=== PATIENT | female | born 1950 | race African-American/Black ===

== ENCOUNTER 2018-04-23 07:57 | Inpatient (IN) ==
[2018-04-23 08:55] LABS: Basophils # 0.1 10*3/uL (0.0-0.2); Basophils % 0.5 % (0.0-0.8); Eosinophils # 0.2 10*3/uL (0.0-0.87); Eosinophils % 1.6 % (0.00-10.9); Hematocrit 41.3 VOL% (35.7-47.0); Hemoglobin 12.9 GM/DL (12.0-16.0); Immature Granulocytes % 0.4 %; Immature Granulocytes Absolute 0.04 #; Lymphocytes # 2.6 10*3/uL (1.4-4.0); Lymphocytes % 25.1 % (21.3-54.2); Mean Corpuscular HGB Conc 31.2 GM/DL (32-36); Mean Corpuscular Hemoglobin 29 PG (27-34); Mean Corpuscular Volume 92.6 FL (87-102); Mean Platelet Volume 9.6 FL (9.6-12.0); Monocytes # 0.7 10*3/uL (0.11-0.8); Monocytes % 6.8 % (1.7-12.7); Neutrophils # 6.8 10*3/uL (1.4-7.4); Neutrophils % 65.6 % (38.7-73.9); Platelet Count 292 T/CUMM (130-400); Red Blood Count 4.46 MC/CUMM (3.8-5.5); Red Cell Distribution Width 12.2 % (9.3-17.3); White Blood Count 10.4 T/CUMM (4-12)
[2018-04-23 09:05] LABS: INR 0.9; Partial Thromboplastin Time 24.9 SECS (0-40)
[2018-04-23 09:27] LABS: Alanine Aminotransferase 41 U/L (13-56); Albumin 3.4 G/DL (3.4-5.0); Alkaline Phosphatase 95 U/L (45-117); Aspartate Amino Transferase 21 U/L (0-37); Blood Urea Nitrogen 21 MG/DL (7-18); Calcium 9.4 MG/DL (8.5-10.1); Glucose 93 MG/DL (74-106); Osmolality,Calculated 288.8 MOS/KG (273-304); Potassium 3.9 MMOL/L (3.5-5.1); Sodium 144 MMOL/L (136-145); Troponin I Only < 0.015 NG/ML (0.00-0.045)
[2018-04-23] MEDS ORDERED: ACETAMINOPHEN 325 MG TABLET PO PRN (14:16)
[2018-04-23] MEDS ORDERED: ONDANSETRON 4 MG/2 ML VIAL IV PRN (14:16)
[2018-04-23] MEDS: SODIUM CHLORIDE 0.9% 1,000 ML IV SCH (18:28)
[2018-04-23] MEDS: methylPREDNISolone SOD SUC 40 MG/1 ML VIAL IV SCH (18:28)
[2018-04-23] MEDS: ASPIRIN EC 325 MG TABLET PO SCH (20:53)
[2018-04-23] MEDS: DOCUSATE SODIUM 100 MG CAPSULE PO SCH (20:53)
[2018-04-24] MEDS: methylPREDNISolone SOD SUC 40 MG/1 ML VIAL IV SCH ×4 (00:03→23:56)
[2018-04-24] MEDS: SODIUM CHLORIDE 0.9% 1,000 ML IV SCH ×3 (02:30→23:58)
[2018-04-24 08:06] LABS: Calcium 8.9 MG/DL (8.5-10.1); Osmolality,Calculated 290.8 MOS/KG (273-304); Potassium 3.6 MMOL/L (3.5-5.1)
[2018-04-24 08:16] LABS: Risk Ratio 3.13; VLDL CHOLESTEROL 13.2 MG/DL
[2018-04-24] MEDS ORDERED: ASPIRIN EC 325 MG TABLET PO SCH (09:00)
[2018-04-24] MEDS: ASPIRIN EC 325 MG TABLET PO SCH (09:42)
[2018-04-24] MEDS: DOCUSATE SODIUM 100 MG CAPSULE PO SCH ×2 (09:42→21:54)
[2018-04-24] MEDS: FUROSEMIDE 20 MG TABLET PO SCH (09:42)
[2018-04-24] MEDS: MAGNESIUM OXIDE 400 MG TABLET PO SCH (09:42)
[2018-04-24] MEDS: ATENOLOL 50 MG TABLET PO SCH (09:42)
[2018-04-24] MEDS: PANTOPRAZOLE 40 MG TABLET PO SCH (09:42)
[2018-04-24] MEDS: TRIAMTERENE/HCTZ 37.5-25 MG TABLET PO SCH (09:42)
[2018-04-24] MEDS: POTASSIUM CHLORIDE 20 MEQ TABLET PO SCH ×2 (09:42→21:55)
[2018-04-24] MEDS: FLUTICASONE 50 MCG NASAL SPRAY 16 GM BOTTLE BOTH NARES SCH (09:43)
[2018-04-25] MEDS: methylPREDNISolone SOD SUC 40 MG/1 ML VIAL IV SCH ×2 (06:48→16:00)
[2018-04-25] MEDS: TRIAMTERENE/HCTZ 37.5-25 MG TABLET PO SCH (09:29)
[2018-04-25] MEDS: PANTOPRAZOLE 40 MG TABLET PO SCH (09:30)
[2018-04-25] MEDS: MAGNESIUM OXIDE 400 MG TABLET PO SCH (09:30)
[2018-04-25] MEDS: ATENOLOL 50 MG TABLET PO SCH (09:30)
[2018-04-25] MEDS: DOCUSATE SODIUM 100 MG CAPSULE PO SCH (09:30)
[2018-04-25] MEDS: POTASSIUM CHLORIDE 20 MEQ TABLET PO SCH (09:30)
[2018-04-25] MEDS: SODIUM CHLORIDE 0.9% 1,000 ML IV SCH (09:31)
[2018-04-25] MEDS: FUROSEMIDE 20 MG TABLET PO SCH (09:31)
[2018-04-25] MEDS: FLUTICASONE 50 MCG NASAL SPRAY 16 GM BOTTLE BOTH NARES SCH (09:31)
[2018-04-25] MEDS: ASPIRIN EC 325 MG TABLET PO SCH (09:31)
[2018-04-25] MEDS ORDERED: hydrALAZINE 20 MG/1 ML VIAL IV PRN (15:38)
[2018-04-25 15:43] VITALS: BP 178/74
== END 2018-04-25 20:00 | disposition home health service (06) | DRG 66 ==
LOC: N.ED 07:57 → N.EDINP 10:14 → N.4E 14:51
PROVIDERS: ADMIT Internal Medicine; ATTEND Internal Medicine

== ENCOUNTER 2018-08-24 15:23 | Inpatient (IN) ==
[2018-08-24] MEDS ORDERED: ASPIRIN 325 MG TABLET PO STA (16:18)
[2018-08-24 16:30] LABS: Basophils % 0.3 % (0.0-0.8); Eosinophils # 0.2 10*3/uL (0.0-0.87); Eosinophils % 1.2 % (0.00-10.9); Hematocrit 40.7 VOL% (35.7-47.0); Hemoglobin 12.8 GM/DL (12.0-16.0); Immature Granulocytes % 0.7 %; Lymphocytes # 3.1 10*3/uL (1.4-4.0); Mean Corpuscular HGB Conc 31.4 GM/DL (32-36); Mean Corpuscular Hemoglobin 30 PG (27-34); Mean Corpuscular Volume 94.2 FL (87-102); Mean Platelet Volume 9.6 FL (9.6-12.0); Monocytes # 1.1 10*3/uL (0.11-0.8); Monocytes % 7.2 % (1.7-12.7); Neutrophils # 10.8 10*3/uL (1.4-7.4); Neutrophils % 70.6 % (38.7-73.9); Platelet Count 355 T/CUMM (130-400); Red Blood Count 4.32 MC/CUMM (3.8-5.5); White Blood Count 15.2 T/CUMM (4-12)
[2018-08-24 16:46] LABS: Calcium 9.1 MG/DL (8.5-10.1); Osmolality,Calculated 288.1 MOS/KG (273-304); Potassium 3.8 MMOL/L (3.5-5.1)
[2018-08-24] MEDS ORDERED: ENOXAPARIN 80 MG/0.8 ML SYRINGE SUBCUT STA (18:13)
[2018-08-24] MEDS ORDERED: NITROGLYCERIN 2% OINT 1 INCH/GM PACK TOP STA (18:13)
[2018-08-24] MEDS ORDERED: MORPHINE 4 MG/1 ML VIAL IV STA (18:15)
[2018-08-24] MEDS ORDERED: ONDANSETRON 4 MG/2 ML VIAL IV STA (18:15)
[2018-08-24] MEDS ORDERED: MAGNESIUM SULF RIDER 2 GM in PREMIX 1 EACH IV PRN (18:16)
[2018-08-24] MEDS ORDERED: ACETAMINOPHEN 325 MG TABLET PO PRN (18:16)
[2018-08-24] MEDS ORDERED: ONDANSETRON 4 MG/2 ML VIAL IV PRN (18:16)
[2018-08-24] MEDS ORDERED: MAGNESIUM SULF RIDER 4 GM in PREMIX 1 EACH IV PRN (18:16)
[2018-08-24] MEDS ORDERED: ZALEPLON 5 MG CAPSULE PO PRN (18:16)
[2018-08-24] MEDS ORDERED: NITROGLYCERIN SL 0.4 MG TABLET SL PRN (18:21)
[2018-08-24] MEDS: DOCUSATE SODIUM 100 MG CAPSULE PO SCH (20:24)
[2018-08-24] MEDS: ATORVASTATIN 20 MG TABLET PO SCH (20:24)
[2018-08-24] MEDS: TOPIRAMATE 25 MG TABLET PO SCH (20:24)
[2018-08-24] MEDS: MECLIZINE 25 MG TABLET PO SCH (20:24)
[2018-08-24] MEDS: CLOPIDOGREL 75 MG TABLET PO SCH (20:24)
[2018-08-24] MEDS: ATENOLOL 50 MG TABLET PO SCH (20:24)
[2018-08-24] MEDS: POTASSIUM CHLORIDE 10 MEQ TABLET PO SCH (20:24)
[2018-08-24] MEDS: SODIUM CHLORIDE 0.45% 1,000 ML IV SCH (20:27)
[2018-08-25] MEDS: MORPHINE 4 MG/1 ML VIAL IV PRN ×3 (00:18→22:40)
[2018-08-25 06:12] LABS: Basophils # 0.1 10*3/uL (0.0-0.2); Basophils % 0.4 % (0.0-0.8); Eosinophils # 0.3 10*3/uL (0.0-0.87); Eosinophils % 2.7 % (0.00-10.9); Hematocrit 37.2 VOL% (35.7-47.0); Hemoglobin 11.1 GM/DL (12.0-16.0); Immature Granulocytes % 0.7 %; Immature Granulocytes Absolute 0.08 #; Lymphocytes # 3.4 10*3/uL (1.4-4.0); Lymphocytes % 28.3 % (21.3-54.2); Mean Corpuscular HGB Conc 29.8 GM/DL (32-36); Mean Corpuscular Hemoglobin 29 PG (27-34); Mean Corpuscular Volume 96.1 FL (87-102); Mean Platelet Volume 10.9 FL (9.6-12.0); Monocytes # 1.1 10*3/uL (0.11-0.8); Monocytes % 8.8 % (1.7-12.7); Neutrophils # 7.1 10*3/uL (1.4-7.4); Neutrophils % 59.1 % (38.7-73.9); Platelet Count 241 T/CUMM (130-400); Red Blood Count 3.87 MC/CUMM (3.8-5.5); Red Cell Distribution Width 12.3 % (9.3-17.3)
[2018-08-25] MEDS ORDERED: ENOXAPARIN 80 MG/0.8 ML SYRINGE SUBCUT SCH (06:30)
[2018-08-25 06:31] LABS: Calcium 8.2 MG/DL (8.5-10.1); Osmolality,Calculated 279.5 MOS/KG (273-304); Potassium 3.7 MMOL/L (3.5-5.1); Risk Ratio 3.7; VLDL CHOLESTEROL 22.4 MG/DL
[2018-08-25] MEDS ORDERED: LIDOCAINE 1% 20 ML VIAL ONE (08:20)
[2018-08-25] MEDS ORDERED: MIDAZOLAM 2 MG/2 ML VIAL ONE (08:21)
[2018-08-25] MEDS ORDERED: HEPARIN/NACL 0.9% 2 UNITS/ML 1,000 ML IV ONE (08:21)
[2018-08-25] MEDS ORDERED: HYDROmorphone 2 MG/1 ML VIAL ONE (08:21)
[2018-08-25] MEDS: ATENOLOL 50 MG TABLET PO SCH ×2 (08:23→21:09)
[2018-08-25] MEDS: CLOPIDOGREL 75 MG TABLET PO SCH (08:23)
[2018-08-25] MEDS ORDERED: BIVALIRUDIN 250 MG VIAL IV ONE (08:58)
[2018-08-25] MEDS ORDERED: ASPIRIN 325 MG TABLET PO SCH (09:00)
[2018-08-25] MEDS ORDERED: TICAGRELOR 90 MG TABLET ONE (09:28)
[2018-08-25] MEDS: PANTOPRAZOLE 40 MG TABLET PO SCH (10:34)
[2018-08-25] MEDS: DOCUSATE SODIUM 100 MG CAPSULE PO SCH ×2 (10:35→21:10)
[2018-08-25] MEDS: POTASSIUM CHLORIDE 10 MEQ TABLET PO SCH ×3 (10:35→21:09)
[2018-08-25] MEDS: TOPIRAMATE 25 MG TABLET PO SCH ×2 (10:35→21:11)
[2018-08-25] MEDS: SODIUM CHLORIDE 0.45% 1,000 ML IV SCH (10:45)
[2018-08-25 11:25] LABS: CKMB % 4.7 %
[2018-08-25 11:34] LABS: Troponin I 11.4 NG/ML (0.00-0.045)
[2018-08-25 18:31] LABS: CKMB % 3.8 %
[2018-08-25 18:33] LABS: Troponin I 4.51 NG/ML (0.00-0.045)
[2018-08-25] MEDS ORDERED: ALUMINUM/MAGNES/SIMETH MAX STR 30 ML UDCUP PO PRN (20:55)
[2018-08-25] MEDS: MECLIZINE 25 MG TABLET PO SCH (21:09)
[2018-08-25] MEDS: ATORVASTATIN 20 MG TABLET PO SCH (21:10)
[2018-08-25] MEDS: TICAGRELOR 90 MG TABLET PO SCH (21:11)
[2018-08-26 03:07] LABS: Osmolality,Calculated 282.1 MOS/KG (273-304); Potassium 4.3 MMOL/L (3.5-5.1)
[2018-08-26 03:11] LABS: CKMB % 2.8 %
[2018-08-26 03:12] LABS: Troponin I 5.21 NG/ML (0.00-0.045)
[2018-08-26] MEDS: TICAGRELOR 90 MG TABLET PO SCH ×2 (08:42→20:41)
[2018-08-26] MEDS: POTASSIUM CHLORIDE 10 MEQ TABLET PO SCH ×3 (08:43→20:41)
[2018-08-26] MEDS: TOPIRAMATE 25 MG TABLET PO SCH ×2 (08:44→20:41)
[2018-08-26] MEDS: PANTOPRAZOLE 40 MG TABLET PO SCH (08:44)
[2018-08-26] MEDS: ASPIRIN EC 81 MG TABLET PO SCH (08:44)
[2018-08-26] MEDS: DOCUSATE SODIUM 100 MG CAPSULE PO SCH ×2 (08:45→20:41)
[2018-08-26] MEDS: ATENOLOL 50 MG TABLET PO SCH ×2 (08:45→20:41)
[2018-08-26] MEDS: ATORVASTATIN 20 MG TABLET PO SCH (20:41)
[2018-08-26] MEDS: MECLIZINE 25 MG TABLET PO SCH (20:42)
[2018-08-26] MEDS: MORPHINE 4 MG/1 ML VIAL IV PRN (21:33)
[2018-08-27] MEDS: MORPHINE 4 MG/1 ML VIAL IV PRN ×2 (05:01→13:17)
[2018-08-27] MEDS: TOPIRAMATE 25 MG TABLET PO SCH ×2 (08:30→22:14)
[2018-08-27] MEDS: DOCUSATE SODIUM 100 MG CAPSULE PO SCH ×2 (08:30→22:15)
[2018-08-27] MEDS: POTASSIUM CHLORIDE 10 MEQ TABLET PO SCH ×3 (08:30→22:13)
[2018-08-27] MEDS: ASPIRIN EC 81 MG TABLET PO SCH (08:30)
[2018-08-27] MEDS: ATENOLOL 50 MG TABLET PO SCH ×2 (08:30→22:14)
[2018-08-27] MEDS: PANTOPRAZOLE 40 MG TABLET PO SCH (08:30)
[2018-08-27] MEDS: TICAGRELOR 90 MG TABLET PO SCH ×2 (08:30→22:18)
[2018-08-27] MEDS ORDERED: MECLIZINE 25 MG TABLET PO PRN (10:23)
[2018-08-27] MEDS: traMADol 50 MG TABLET PO PRN ×2 (11:04→22:11)
[2018-08-27] MEDS ORDERED: POTASSIUM CHLORIDE 40 MEQ PO SCH (15:00)
[2018-08-27] MEDS: LIDOCAINE 5% PATCH TRANSDERM SCH (17:35)
[2018-08-27] MEDS ORDERED: ATORVASTATIN 20 MG TABLET PO SCH (21:00)
[2018-08-27] MEDS ORDERED: ATENOLOL 50 MG TABLET PO SCH (21:00)
[2018-08-27] MEDS ORDERED: DOCUSATE SODIUM 100 MG CAPSULE PO SCH (21:00)
[2018-08-27] MEDS ORDERED: TOPIRAMATE 25 MG TABLET PO SCH (21:00)
[2018-08-27] MEDS: MECLIZINE 25 MG TABLET PO SCH (22:12)
[2018-08-27] MEDS: ATORVASTATIN 20 MG TABLET PO SCH (22:13)
[2018-08-28 04:59] LABS: Basophils % 0.3 % (0.0-0.8); Eosinophils # 0.4 10*3/uL (0.0-0.87); Hematocrit 31.9 VOL% (35.7-47.0); Hemoglobin 9.4 GM/DL (12.0-16.0); Immature Granulocytes % 0.6 %; Immature Granulocytes Absolute 0.08 #; Lymphocytes # 2.7 10*3/uL (1.4-4.0); Lymphocytes % 21.6 % (21.3-54.2); Mean Corpuscular HGB Conc 29.5 GM/DL (32-36); Mean Corpuscular Hemoglobin 29 PG (27-34); Mean Corpuscular Volume 96.7 FL (87-102); Mean Platelet Volume 10.2 FL (9.6-12.0); Monocytes % 8.2 % (1.7-12.7); Neutrophils # 8.3 10*3/uL (1.4-7.4); Neutrophils % 66.3 % (38.7-73.9); Platelet Count 279 T/CUMM (130-400); Red Cell Distribution Width 12.4 % (9.3-17.3); White Blood Count 12.5 T/CUMM (4-12)
[2018-08-28 05:29] LABS: Calcium 7.8 MG/DL (8.5-10.1); Osmolality,Calculated 283.1 MOS/KG (273-304); Potassium 4.3 MMOL/L (3.5-5.1)
[2018-08-28] MEDS ORDERED: NON-FORMULARY MEDICATION (Omeprazole [Prilosec] 20 MG) PO SCH (09:00)
[2018-08-28] MEDS: MAGNESIUM OXIDE 400 MG TABLET PO SCH (09:31)
[2018-08-28] MEDS: TICAGRELOR 90 MG TABLET PO SCH ×2 (09:31→22:24)
[2018-08-28] MEDS: ASPIRIN EC 81 MG TABLET PO SCH (09:31)
[2018-08-28] MEDS: ATENOLOL 50 MG TABLET PO SCH ×2 (09:31→22:26)
[2018-08-28] MEDS: POTASSIUM CHLORIDE 10 MEQ TABLET PO SCH ×3 (09:31→22:28)
[2018-08-28] MEDS: TOPIRAMATE 25 MG TABLET PO SCH ×2 (09:32→22:25)
[2018-08-28] MEDS: PANTOPRAZOLE 40 MG TABLET PO SCH (09:32)
[2018-08-28] MEDS: LIDOCAINE 5% PATCH TRANSDERM SCH (09:33)
[2018-08-28] MEDS: DOCUSATE SODIUM 100 MG CAPSULE PO SCH ×2 (09:34→22:26)
[2018-08-28] MEDS: FLUTICASONE 50 MCG NASAL SPRAY 16 GM BOTTLE BOTH NARES SCH (09:34)
[2018-08-28] MEDS ORDERED: ROPIVACAINE 0.5% 30 ML VIAL NERVEBLOCK ONE (14:30)
[2018-08-28] MEDS ORDERED: TRIAMCINOLONE ACETONIDE 40 MG/1 ML VIAL MISC INJ ONE (14:30)
[2018-08-28] MEDS: MECLIZINE 25 MG TABLET PO SCH (22:25)
[2018-08-28] MEDS: traMADol 50 MG TABLET PO PRN (22:25)
[2018-08-28] MEDS: ATORVASTATIN 20 MG TABLET PO SCH (22:25)
[2018-08-29 07:34] LABS: Basophils # 0.1 10*3/uL (0.0-0.2); Basophils % 0.3 % (0.0-0.8); Eosinophils # 0.3 10*3/uL (0.0-0.87); Hematocrit 32.2 VOL% (35.7-47.0); Immature Granulocytes % 0.9 %; Immature Granulocytes Absolute 0.13 #; Lymphocytes # 2.3 10*3/uL (1.4-4.0); Lymphocytes % 15.7 % (21.3-54.2); Mean Corpuscular HGB Conc 31.1 GM/DL (32-36); Mean Corpuscular Hemoglobin 30 PG (27-34); Mean Corpuscular Volume 96.4 FL (87-102); Mean Platelet Volume 9.8 FL (9.6-12.0); Monocytes % 6.7 % (1.7-12.7); Neutrophils # 10.6 10*3/uL (1.4-7.4); Neutrophils % 74.4 % (38.7-73.9); Platelet Count 302 T/CUMM (130-400); Red Blood Count 3.34 MC/CUMM (3.8-5.5); Red Cell Distribution Width 12.4 % (9.3-17.3); White Blood Count 14.3 T/CUMM (4-12)
[2018-08-29 07:55] LABS: Calcium 8.6 MG/DL (8.5-10.1); Potassium 4.1 MMOL/L (3.5-5.1)
[2018-08-29 07:57] LABS: Troponin I 0.739 NG/ML (0.00-0.045)
[2018-08-29] MEDS: TICAGRELOR 90 MG TABLET PO SCH ×2 (08:31→21:22)
[2018-08-29] MEDS: MAGNESIUM OXIDE 400 MG TABLET PO SCH (08:31)
[2018-08-29] MEDS: PANTOPRAZOLE 40 MG TABLET PO SCH (08:32)
[2018-08-29] MEDS: POTASSIUM CHLORIDE 10 MEQ TABLET PO SCH ×3 (08:32→21:21)
[2018-08-29] MEDS: TOPIRAMATE 25 MG TABLET PO SCH ×2 (08:32→21:22)
[2018-08-29] MEDS: ATENOLOL 50 MG TABLET PO SCH ×2 (08:32→21:24)
[2018-08-29] MEDS: ASPIRIN EC 81 MG TABLET PO SCH (08:32)
[2018-08-29] MEDS: DOCUSATE SODIUM 100 MG CAPSULE PO SCH ×2 (08:32→21:22)
[2018-08-29] MEDS: LIDOCAINE 5% PATCH TRANSDERM SCH (08:33)
[2018-08-29] MEDS: FLUTICASONE 50 MCG NASAL SPRAY 16 GM BOTTLE BOTH NARES SCH (08:39)
[2018-08-29] MEDS: ATORVASTATIN 20 MG TABLET PO SCH (21:22)
[2018-08-29] MEDS: MECLIZINE 25 MG TABLET PO SCH (21:22)
[2018-08-30 06:01] LABS: Calcium 8.7 MG/DL (8.5-10.1); Osmolality,Calculated 283.1 MOS/KG (273-304); Potassium 4.1 MMOL/L (3.5-5.1)
[2018-08-30 06:35] LABS: Basophils # 0.1 10*3/uL (0.0-0.2); Basophils % 0.4 % (0.0-0.8); Eosinophils # 0.3 10*3/uL (0.0-0.87); Eosinophils % 1.9 % (0.00-10.9); Hematocrit 34.2 VOL% (35.7-47.0); Hemoglobin 10.7 GM/DL (12.0-16.0); Immature Granulocytes % 1.2 %; Immature Granulocytes Absolute 0.17 #; Lymphocytes # 2.3 10*3/uL (1.4-4.0); Lymphocytes % 15.6 % (21.3-54.2); Mean Corpuscular HGB Conc 31.3 GM/DL (32-36); Mean Corpuscular Hemoglobin 30 PG (27-34); Mean Platelet Volume 10.7 FL (9.6-12.0); Monocytes % 6.8 % (1.7-12.7); Neutrophils # 10.7 10*3/uL (1.4-7.4); Neutrophils % 74.1 % (38.7-73.9); Platelet Count 288 T/CUMM (130-400); Red Cell Distribution Width 12.5 % (9.3-17.3); White Blood Count 14.5 T/CUMM (4-12)
[2018-08-30] MEDS: MAGNESIUM OXIDE 400 MG TABLET PO SCH (08:32)
[2018-08-30] MEDS: POTASSIUM CHLORIDE 10 MEQ TABLET PO SCH ×3 (08:33→20:51)
[2018-08-30] MEDS: PANTOPRAZOLE 40 MG TABLET PO SCH (08:33)
[2018-08-30] MEDS: ATENOLOL 50 MG TABLET PO SCH ×2 (08:33→20:52)
[2018-08-30] MEDS: TICAGRELOR 90 MG TABLET PO SCH ×2 (08:33→20:51)
[2018-08-30] MEDS: SERTRALINE 25 MG TABLET PO SCH (08:34)
[2018-08-30] MEDS: DOCUSATE SODIUM 100 MG CAPSULE PO SCH ×2 (08:34→20:52)
[2018-08-30] MEDS: ASPIRIN EC 81 MG TABLET PO SCH (08:34)
[2018-08-30] MEDS: TOPIRAMATE 25 MG TABLET PO SCH ×2 (08:35→20:52)
[2018-08-30] MEDS: LIDOCAINE 5% PATCH TRANSDERM SCH (08:38)
[2018-08-30] MEDS: FLUTICASONE 50 MCG NASAL SPRAY 16 GM BOTTLE BOTH NARES SCH (08:40)
[2018-08-30] MEDS: traMADol 50 MG TABLET PO PRN ×2 (12:18→20:52)
[2018-08-30] MEDS: ATORVASTATIN 20 MG TABLET PO SCH (20:51)
[2018-08-30] MEDS: MECLIZINE 25 MG TABLET PO SCH (20:51)
[2018-08-31] MEDS: MAGNESIUM OXIDE 400 MG TABLET PO SCH (10:43)
[2018-08-31] MEDS: SERTRALINE 25 MG TABLET PO SCH (10:43)
[2018-08-31] MEDS: ASPIRIN EC 81 MG TABLET PO SCH (10:43)
[2018-08-31] MEDS: DOCUSATE SODIUM 100 MG CAPSULE PO SCH ×2 (10:44→10:55)
[2018-08-31] MEDS: ATENOLOL 50 MG TABLET PO SCH (10:44)
[2018-08-31] MEDS: TICAGRELOR 90 MG TABLET PO SCH (10:44)
[2018-08-31] MEDS: POTASSIUM CHLORIDE 10 MEQ TABLET PO SCH (10:44)
[2018-08-31] MEDS: PANTOPRAZOLE 40 MG TABLET PO SCH (10:44)
[2018-08-31] MEDS: TOPIRAMATE 25 MG TABLET PO SCH (10:44)
[2018-08-31] MEDS: LIDOCAINE 5% PATCH TRANSDERM SCH ×2 (10:45→10:57)
[2018-08-31] MEDS: FLUTICASONE 50 MCG NASAL SPRAY 16 GM BOTTLE BOTH NARES SCH (10:45)
[2018-08-31 11:26] VITALS: BP 130/64
== END 2018-08-31 13:11 | disposition home health service (06) | DRG 247 ==
LOC: N.ED 15:23 → N.EDINP 18:16 → N.TELES 19:02
PROVIDERS: ADMIT Internal Medicine; ATTEND Internal Medicine
PROC: CLCCHCL (ICD-10-PCS; 2018-08-25 09:00)

== ENCOUNTER 2018-09-11 12:06 | Inpatient (IN) ==
[2018-09-11] MEDS ORDERED: ONDANSETRON 4 MG/2 ML VIAL IV STA (12:36)
[2018-09-11] MEDS ORDERED: HYDROmorphone 2 MG/1 ML VIAL IV STA ×2 (12:36→15:31)
[2018-09-11] MEDS ORDERED: methylPREDNISolone SOD SUC 125 MG/2 ML VIAL IV STA (12:37)
[2018-09-11 13:38] LABS: Basophils # 0.1 10*3/uL (0.0-0.2); Basophils % 0.4 % (0.0-0.8); Eosinophils # 0.2 10*3/uL (0.0-0.87); Eosinophils % 0.9 % (0.00-10.9); Hematocrit 38.8 VOL% (35.7-47.0); Hemoglobin 12.2 GM/DL (12.0-16.0); Immature Granulocytes % 0.6 %; Immature Granulocytes Absolute 0.11 #; Lymphocytes # 1.4 10*3/uL (1.4-4.0); Lymphocytes % 7.8 % (21.3-54.2); Mean Corpuscular HGB Conc 31.4 GM/DL (32-36); Mean Corpuscular Hemoglobin 30 PG (27-34); Mean Corpuscular Volume 94.9 FL (87-102); Mean Platelet Volume 10.6 FL (9.6-12.0); Monocytes # 1.5 10*3/uL (0.11-0.8); Monocytes % 8.3 % (1.7-12.7); Platelet Count 405 T/CUMM (130-400); Red Blood Count 4.09 MC/CUMM (3.8-5.5); Red Cell Distribution Width 12.7 % (9.3-17.3); White Blood Count 18.3 T/CUMM (4-12)
[2018-09-11 14:03] LABS: Calcium 9.3 MG/DL (8.5-10.1); Osmolality,Calculated 275.7 MOS/KG (273-304); Potassium 4.9 MMOL/L (3.5-5.1); Uric Acid 7.3 MG/DL (2.6-6.0)
[2018-09-11] MEDS ORDERED: ONDANSETRON 4 MG/2 ML VIAL IV PRN (16:46)
[2018-09-11] MEDS ORDERED: ACETAMINOPHEN 325 MG TABLET PO PRN (16:46)
[2018-09-11] MEDS: SODIUM CHLORIDE 0.9% 1,000 ML IV SCH (17:27)
[2018-09-11] MEDS: PIPERACILLIN/TAZOBACTAM 3,375 MG in SODIUM CHLORIDE 0.9% 100 ML IV SCH (19:29)
[2018-09-11] MEDS: LIDOCAINE 5% PATCH TRANSDERM SCH (20:29)
[2018-09-11] MEDS: KETOROLAC 15 MG/1 ML VIAL IV SCH (20:29)
[2018-09-11] MEDS: DOCUSATE SODIUM 100 MG CAPSULE PO SCH ×2 (20:29→22:58)
[2018-09-11] MEDS ORDERED: traMADol 50 MG TABLET PO PRN (21:45)
[2018-09-11] MEDS ORDERED: ALUMINUM/MAGNES/SIMETH MAX STR 30 ML UDCUP PO PRN (21:45)
[2018-09-11] MEDS ORDERED: NITROGLYCERIN SL 0.4 MG TABLET SL PRN (21:45)
[2018-09-11] MEDS: TICAGRELOR 90 MG TABLET PO SCH (22:58)
[2018-09-11] MEDS: ATENOLOL 50 MG TABLET PO SCH (22:58)
[2018-09-11] MEDS: TOPIRAMATE 25 MG TABLET PO SCH (22:58)
[2018-09-11] MEDS: MECLIZINE 25 MG TABLET PO SCH (22:58)
[2018-09-11] MEDS: methylPREDNISolone SOD SUC 40 MG/1 ML VIAL IV SCH (22:59)
[2018-09-12] MEDS: PIPERACILLIN/TAZOBACTAM 3,375 MG in SODIUM CHLORIDE 0.9% 100 ML IV SCH ×3 (03:19→18:31)
[2018-09-12] MEDS: SODIUM CHLORIDE 0.9% 1,000 ML IV SCH ×3 (03:23→18:13)
[2018-09-12] MEDS: KETOROLAC 15 MG/1 ML VIAL IV SCH ×3 (04:53→20:50)
[2018-09-12 05:20] LABS: Basophils % 0.1 % (0.0-0.8); Hematocrit 33.5 VOL% (35.7-47.0); Hemoglobin 10.4 GM/DL (12.0-16.0); Immature Granulocytes % 0.7 %; Immature Granulocytes Absolute 0.11 #; Lymphocytes # 0.8 10*3/uL (1.4-4.0); Lymphocytes % 5.2 % (21.3-54.2); Mean Corpuscular Hemoglobin 29 PG (27-34); Mean Corpuscular Volume 94.6 FL (87-102); Mean Platelet Volume 10.5 FL (9.6-12.0); Monocytes # 0.4 10*3/uL (0.11-0.8); Monocytes % 2.6 % (1.7-12.7); Neutrophils # 13.6 10*3/uL (1.4-7.4); Neutrophils % 91.4 % (38.7-73.9); Platelet Count 378 T/CUMM (130-400); Red Blood Count 3.54 MC/CUMM (3.8-5.5); Red Cell Distribution Width 12.5 % (9.3-17.3); White Blood Count 14.9 T/CUMM (4-12)
[2018-09-12 05:59] LABS: Osmolality,Calculated 284.3 MOS/KG (273-304); Potassium 4.3 MMOL/L (3.5-5.1)
[2018-09-12] MEDS: methylPREDNISolone SOD SUC 40 MG/1 ML VIAL IV SCH (06:08)
[2018-09-12 06:25] LABS: Band Neutrophils 1 % (0-10); Hypochromasia 1+; Lymphocytes 6 % (20-55); Platelet Estimate Adequate; Segmented Neutrophils 91 % (50-85); Total Cells Counted 100
[2018-09-12] MEDS: PANTOPRAZOLE 40 MG TABLET PO SCH (09:12)
[2018-09-12] MEDS: TICAGRELOR 90 MG TABLET PO SCH ×2 (09:12→20:49)
[2018-09-12] MEDS: ATENOLOL 50 MG TABLET PO SCH ×2 (09:12→20:49)
[2018-09-12] MEDS: FLUTICASONE 50 MCG NASAL SPRAY 16 GM BOTTLE BOTH NARES SCH (09:12)
[2018-09-12] MEDS: POTASSIUM CHLORIDE 20 MEQ TABLET PO SCH ×3 (09:12→20:49)
[2018-09-12] MEDS: MAGNESIUM OXIDE 400 MG TABLET PO SCH (09:12)
[2018-09-12] MEDS: TOPIRAMATE 25 MG TABLET PO SCH ×2 (09:12→20:49)
[2018-09-12] MEDS: ASPIRIN EC 81 MG TABLET PO SCH (09:12)
[2018-09-12] MEDS: DOCUSATE SODIUM 100 MG CAPSULE PO SCH ×3 (09:12→20:49)
[2018-09-12] MEDS: MECLIZINE 25 MG TABLET PO PRN (16:26)
[2018-09-12] MEDS: MECLIZINE 25 MG TABLET PO SCH (20:49)
[2018-09-12] MEDS: LIDOCAINE 5% PATCH TRANSDERM SCH (21:25)
[2018-09-12] MEDS ORDERED: MAGNESIUM SULF RIDER 1 GM in PREMIX 1 EACH IV ONE (22:37)
[2018-09-13] MEDS: SODIUM CHLORIDE 0.9% 1,000 ML IV SCH ×3 (02:35→17:06)
[2018-09-13] MEDS: PIPERACILLIN/TAZOBACTAM 3,375 MG in SODIUM CHLORIDE 0.9% 100 ML IV SCH ×3 (02:35→18:27)
[2018-09-13] MEDS: KETOROLAC 15 MG/1 ML VIAL IV SCH ×3 (05:19→20:39)
[2018-09-13] MEDS: DOCUSATE SODIUM 100 MG CAPSULE PO SCH ×2 (08:42→20:41)
[2018-09-13] MEDS: ASPIRIN EC 81 MG TABLET PO SCH (08:42)
[2018-09-13] MEDS: TOPIRAMATE 25 MG TABLET PO SCH ×2 (08:42→20:40)
[2018-09-13] MEDS: PANTOPRAZOLE 40 MG TABLET PO SCH (08:42)
[2018-09-13] MEDS: TICAGRELOR 90 MG TABLET PO SCH ×2 (08:42→20:40)
[2018-09-13] MEDS: POTASSIUM CHLORIDE 20 MEQ TABLET PO SCH ×3 (08:42→20:39)
[2018-09-13] MEDS: FLUTICASONE 50 MCG NASAL SPRAY 16 GM BOTTLE BOTH NARES SCH (08:42)
[2018-09-13] MEDS: MAGNESIUM OXIDE 400 MG TABLET PO SCH (08:42)
[2018-09-13] MEDS: ATENOLOL 50 MG TABLET PO SCH ×2 (08:43→20:40)
[2018-09-13] MEDS: LIDOCAINE 5% PATCH TRANSDERM SCH (20:40)
[2018-09-13] MEDS: MECLIZINE 25 MG TABLET PO SCH (20:40)
[2018-09-14] MEDS: SODIUM CHLORIDE 0.9% 1,000 ML IV SCH ×2 (01:22→09:20)
[2018-09-14] MEDS: PIPERACILLIN/TAZOBACTAM 3,375 MG in SODIUM CHLORIDE 0.9% 100 ML IV SCH ×3 (03:13→20:44)
[2018-09-14] MEDS: KETOROLAC 15 MG/1 ML VIAL IV SCH (05:31)
[2018-09-14 08:04] LABS: Basophils # 0.1 10*3/uL (0.0-0.2); Basophils % 0.5 % (0.0-0.8); Eosinophils # 0.5 10*3/uL (0.0-0.87); Eosinophils % 4.4 % (0.00-10.9); Hematocrit 32.3 VOL% (35.7-47.0); Hemoglobin 9.8 GM/DL (12.0-16.0); Immature Granulocytes % 0.9 %; Immature Granulocytes Absolute 0.09 #; Lymphocytes # 2.8 10*3/uL (1.4-4.0); Lymphocytes % 27.6 % (21.3-54.2); Mean Corpuscular HGB Conc 30.3 GM/DL (32-36); Mean Corpuscular Hemoglobin 29 PG (27-34); Mean Corpuscular Volume 95.3 FL (87-102); Monocytes # 0.8 10*3/uL (0.11-0.8); Neutrophils # 5.9 10*3/uL (1.4-7.4); Neutrophils % 58.6 % (38.7-73.9); Platelet Count 313 T/CUMM (130-400); Red Blood Count 3.39 MC/CUMM (3.8-5.5); Red Cell Distribution Width 13.2 % (9.3-17.3); White Blood Count 10.1 T/CUMM (4-12)
[2018-09-14 08:23] LABS: Platelet Estimate Normal
[2018-09-14 08:25] LABS: Anisocytosis 1+; Giant Platelets Few; Macrocytosis 1+
[2018-09-14 08:26] LABS: Calcium 8.5 MG/DL (8.5-10.1); Osmolality,Calculated 288.7 MOS/KG (273-304); Potassium 4.3 MMOL/L (3.5-5.1)
[2018-09-14] MEDS: POTASSIUM CHLORIDE 20 MEQ TABLET PO SCH ×3 (08:30→20:45)
[2018-09-14] MEDS: ASPIRIN EC 81 MG TABLET PO SCH (08:31)
[2018-09-14] MEDS: TICAGRELOR 90 MG TABLET PO SCH ×2 (08:31→20:45)
[2018-09-14] MEDS: TOPIRAMATE 25 MG TABLET PO SCH ×2 (08:31→20:45)
[2018-09-14] MEDS: DOCUSATE SODIUM 100 MG CAPSULE PO SCH (08:31)
[2018-09-14] MEDS: PANTOPRAZOLE 40 MG TABLET PO SCH (08:31)
[2018-09-14] MEDS: ATENOLOL 50 MG TABLET PO SCH ×2 (08:32→20:45)
[2018-09-14] MEDS: MAGNESIUM OXIDE 400 MG TABLET PO SCH (08:32)
[2018-09-14] MEDS: FLUTICASONE 50 MCG NASAL SPRAY 16 GM BOTTLE BOTH NARES SCH (10:13)
[2018-09-14] MEDS ORDERED: cloNIDine 0.1 MG TABLET PO ONE (12:30)
[2018-09-14] MEDS: methylPREDNISolone SOD SUC 40 MG/1 ML VIAL IV SCH (13:46)
[2018-09-14 15:27] LABS: Apearance,Urine CLEAR (Clear); Bilirubin,Urine Negative (Negative); Blood, Urine Negative (Negative); Glucose,Urine (UA) Negative (Negative); Ketones,Urine Negative (Negative); Nitrite,Urine Negative (Negative); Protein,Urine Negative; RBC,Urine <1 /HPF (0-4); Urine Color Straw (Yellow); Urine Specific Gravity 1.011 (1.001-1.035); Urine Urobilinogen < 2.0 EU/DL (0.2-1.0); WBC,Urine 1 /HPF (0-6)
[2018-09-14] MEDS: SODIUM CHLORIDE 23.4% CONC INJ 38.5 MEQ in STERILE WATER INJ 1,000 ML IV SCH (16:47)
[2018-09-14] MEDS: MECLIZINE 25 MG TABLET PO SCH (20:45)
[2018-09-14] MEDS: cloNIDine 0.1 MG TABLET PO SCH (20:45)
[2018-09-14] MEDS: LIDOCAINE 5% PATCH TRANSDERM SCH (20:48)
[2018-09-14] MEDS ORDERED: cloNIDine 0.1 MG TABLET PO SCH (21:00)
[2018-09-15] MEDS: methylPREDNISolone SOD SUC 40 MG/1 ML VIAL IV SCH ×2 (00:36→15:33)
[2018-09-15] MEDS: PIPERACILLIN/TAZOBACTAM 3,375 MG in SODIUM CHLORIDE 0.9% 100 ML IV SCH ×3 (03:53→21:00)
[2018-09-15 06:30] LABS: Albumin 2.6 G/DL (3.4-5.0); Bilirubin,Total 0.7 MG/DL (0.2-1.0); Calcium 8.5 MG/DL (8.5-10.1); Osmolality,Calculated 287.8 MOS/KG (273-304); Potassium 4.8 MMOL/L (3.5-5.1); Total Protein 6.3 G/DL (6.4-8.3)
[2018-09-15] MEDS: MAGNESIUM OXIDE 400 MG TABLET PO SCH (08:39)
[2018-09-15] MEDS: TOPIRAMATE 25 MG TABLET PO SCH ×2 (08:40→20:38)
[2018-09-15] MEDS: ASPIRIN EC 81 MG TABLET PO SCH (08:40)
[2018-09-15] MEDS: ATENOLOL 50 MG TABLET PO SCH ×2 (08:40→20:38)
[2018-09-15] MEDS: PANTOPRAZOLE 40 MG TABLET PO SCH (08:42)
[2018-09-15] MEDS: TICAGRELOR 90 MG TABLET PO SCH ×2 (08:43→20:38)
[2018-09-15] MEDS: POTASSIUM CHLORIDE 20 MEQ TABLET PO SCH ×3 (08:44→20:38)
[2018-09-15] MEDS: FLUTICASONE 50 MCG NASAL SPRAY 16 GM BOTTLE BOTH NARES SCH (08:45)
[2018-09-15] MEDS: cloNIDine 0.1 MG TABLET PO SCH ×2 (08:54→20:38)
[2018-09-15 13:27] LABS: Basophils % 0.2 % (0.0-0.8); Eosinophils # 0.2 10*3/uL (0.0-0.87); Hematocrit 33.4 VOL% (35.7-47.0); Hemoglobin 10.1 GM/DL (12.0-16.0); Immature Granulocytes % 1.3 %; Immature Granulocytes Absolute 0.19 #; Lymphocytes % 19.9 % (21.3-54.2); Mean Corpuscular HGB Conc 30.2 GM/DL (32-36); Mean Corpuscular Hemoglobin 29 PG (27-34); Mean Corpuscular Volume 95.7 FL (87-102); Monocytes % 6.6 % (1.7-12.7); Neutrophils # 10.7 10*3/uL (1.4-7.4); Platelet Count 340 T/CUMM (130-400); Red Blood Count 3.49 MC/CUMM (3.8-5.5); White Blood Count 15.1 T/CUMM (4-12)
[2018-09-15 17:49] LABS: Folate 8.8 NG/ML (5.4-24.0)
[2018-09-15] MEDS: SODIUM CHLORIDE 23.4% CONC INJ 38.5 MEQ in STERILE WATER INJ 1,000 ML IV SCH (19:00)
[2018-09-15] MEDS: MECLIZINE 25 MG TABLET PO SCH (20:38)
[2018-09-15] MEDS: LIDOCAINE 5% PATCH TRANSDERM SCH (20:39)
[2018-09-16] MEDS: methylPREDNISolone SOD SUC 40 MG/1 ML VIAL IV SCH ×2 (01:18→13:54)
[2018-09-16] MEDS: SODIUM CHLORIDE 23.4% CONC INJ 38.5 MEQ in STERILE WATER INJ 1,000 ML IV SCH ×3 (01:18→12:56)
[2018-09-16] MEDS: PIPERACILLIN/TAZOBACTAM 3,375 MG in SODIUM CHLORIDE 0.9% 100 ML IV SCH ×3 (04:16→20:47)
[2018-09-16] MEDS ORDERED: LABETALOL 20 MG/4 ML SYRINGE IV PRN (04:34)
[2018-09-16] MEDS ORDERED: hydroCHLOROthiazide 25 MG TABLET PO SCH (04:37)
[2018-09-16] MEDS: hydroCHLOROthiazide 25 MG TABLET PO SCH (05:04)
[2018-09-16 05:46] LABS: Basophils % 0.2 % (0.0-0.8); Eosinophils % 0.2 % (0.00-10.9); Hemoglobin 10.1 GM/DL (12.0-16.0); Immature Granulocytes % 2.3 %; Immature Granulocytes Absolute 0.31 #; Lymphocytes # 1.6 10*3/uL (1.4-4.0); Lymphocytes % 11.3 % (21.3-54.2); Mean Corpuscular HGB Conc 30.6 GM/DL (32-36); Mean Corpuscular Hemoglobin 29 PG (27-34); Mean Corpuscular Volume 95.1 FL (87-102); Mean Platelet Volume 10.2 FL (9.6-12.0); Monocytes # 0.3 10*3/uL (0.11-0.8); Monocytes % 2.4 % (1.7-12.7); Neutrophils # 11.5 10*3/uL (1.4-7.4); Neutrophils % 83.6 % (38.7-73.9); Platelet Count 349 T/CUMM (130-400); Red Blood Count 3.47 MC/CUMM (3.8-5.5); Red Cell Distribution Width 13.1 % (9.3-17.3); White Blood Count 13.8 T/CUMM (4-12)
[2018-09-16 06:13] LABS: % Iron Saturation 35.5 % (18-50); Ferritin 212.8 ng/ml (8-252)
[2018-09-16] MEDS: ASPIRIN EC 81 MG TABLET PO SCH (09:17)
[2018-09-16] MEDS: PANTOPRAZOLE 40 MG TABLET PO SCH (09:17)
[2018-09-16] MEDS: ATENOLOL 50 MG TABLET PO SCH ×2 (09:18→20:47)
[2018-09-16] MEDS: cloNIDine 0.1 MG TABLET PO SCH ×2 (09:19→20:47)
[2018-09-16] MEDS: POTASSIUM CHLORIDE 20 MEQ TABLET PO SCH ×3 (09:19→20:46)
[2018-09-16] MEDS: TICAGRELOR 90 MG TABLET PO SCH ×2 (09:19→20:47)
[2018-09-16] MEDS: MAGNESIUM OXIDE 400 MG TABLET PO SCH (09:19)
[2018-09-16] MEDS: TOPIRAMATE 25 MG TABLET PO SCH ×2 (09:19→20:47)
[2018-09-16] MEDS: FLUTICASONE 50 MCG NASAL SPRAY 16 GM BOTTLE BOTH NARES SCH (09:21)
[2018-09-16] MEDS: DOCUSATE SODIUM 100 MG CAPSULE PO PRN (20:47)
[2018-09-16] MEDS: MECLIZINE 25 MG TABLET PO SCH (20:47)
[2018-09-16] MEDS: LIDOCAINE 5% PATCH TRANSDERM SCH (20:48)
[2018-09-17] MEDS: methylPREDNISolone SOD SUC 40 MG/1 ML VIAL IV SCH ×2 (00:20→13:28)
[2018-09-17] MEDS: PIPERACILLIN/TAZOBACTAM 3,375 MG in SODIUM CHLORIDE 0.9% 100 ML IV SCH ×3 (03:37→21:40)
[2018-09-17 04:53] LABS: Basophils % 0.2 % (0.0-0.8); Eosinophils % 0.3 % (0.00-10.9); Hematocrit 32.6 VOL% (35.7-47.0); Hemoglobin 9.8 GM/DL (12.0-16.0); Immature Granulocytes % 2.1 %; Immature Granulocytes Absolute 0.26 #; Lymphocytes # 1.6 10*3/uL (1.4-4.0); Lymphocytes % 13.2 % (21.3-54.2); Mean Corpuscular HGB Conc 30.1 GM/DL (32-36); Mean Corpuscular Hemoglobin 29 PG (27-34); Mean Corpuscular Volume 95.3 FL (87-102); Mean Platelet Volume 10.2 FL (9.6-12.0); Monocytes # 0.5 10*3/uL (0.11-0.8); Monocytes % 4.2 % (1.7-12.7); Neutrophils # 9.9 10*3/uL (1.4-7.4); Platelet Count 344 T/CUMM (130-400); Red Blood Count 3.42 MC/CUMM (3.8-5.5); Red Cell Distribution Width 13.3 % (9.3-17.3); White Blood Count 12.4 T/CUMM (4-12)
[2018-09-17] MEDS: ASPIRIN EC 81 MG TABLET PO SCH (08:16)
[2018-09-17] MEDS: hydroCHLOROthiazide 25 MG TABLET PO SCH (08:16)
[2018-09-17] MEDS: PANTOPRAZOLE 40 MG TABLET PO SCH (08:16)
[2018-09-17] MEDS: ATENOLOL 50 MG TABLET PO SCH ×2 (08:16→22:24)
[2018-09-17] MEDS: POTASSIUM CHLORIDE 20 MEQ TABLET PO SCH ×3 (08:17→21:49)
[2018-09-17] MEDS: MAGNESIUM OXIDE 400 MG TABLET PO SCH (08:17)
[2018-09-17] MEDS: cloNIDine 0.1 MG TABLET PO SCH ×2 (08:17→22:24)
[2018-09-17] MEDS: TOPIRAMATE 25 MG TABLET PO SCH ×2 (08:17→21:49)
[2018-09-17] MEDS: FLUTICASONE 50 MCG NASAL SPRAY 16 GM BOTTLE BOTH NARES SCH (08:20)
[2018-09-17] MEDS: TICAGRELOR 90 MG TABLET PO SCH ×3 (08:20→21:49)
[2018-09-17] MEDS ORDERED: ATENOLOL 50 MG TABLET PO ONE (09:31)
[2018-09-17] MEDS: FOLIC ACID 1 MG TABLET PO SCH (09:55)
[2018-09-17] MEDS: MECLIZINE 25 MG TABLET PO PRN (10:30)
[2018-09-17] MEDS ORDERED: methylPREDNISolone SOD SUC 40 MG/1 ML VIAL IV SCH (13:30)
[2018-09-17] MEDS: SODIUM CHLORIDE 23.4% CONC INJ 38.5 MEQ in STERILE WATER INJ 1,000 ML IV SCH ×2 (20:20→22:44)
[2018-09-17] MEDS: MECLIZINE 25 MG TABLET PO SCH (21:48)
[2018-09-17] MEDS: LIDOCAINE 5% PATCH TRANSDERM SCH (21:54)
[2018-09-18 04:45] LABS: Basophils % 0.2 % (0.0-0.8); Eosinophils % 0.1 % (0.00-10.9); Hematocrit 31.9 VOL% (35.7-47.0); Hemoglobin 9.9 GM/DL (12.0-16.0); Immature Granulocytes % 1.9 %; Immature Granulocytes Absolute 0.31 #; Lymphocytes # 3.4 10*3/uL (1.4-4.0); Lymphocytes % 20.4 % (21.3-54.2); Mean Corpuscular Hemoglobin 30 PG (27-34); Mean Corpuscular Volume 95.2 FL (87-102); Mean Platelet Volume 10.1 FL (9.6-12.0); Monocytes # 1.2 10*3/uL (0.11-0.8); Monocytes % 7.4 % (1.7-12.7); NRBC # 0.02 10*3/uL; Neutrophils # 11.7 10*3/uL (1.4-7.4); Platelet Count 323 T/CUMM (130-400); Red Blood Count 3.35 MC/CUMM (3.8-5.5); Red Cell Distribution Width 13.5 % (9.3-17.3); White Blood Count 16.7 T/CUMM (4-12)
[2018-09-18 05:16] LABS: Calcium 8.8 MG/DL (8.5-10.1); Osmolality,Calculated 288.8 MOS/KG (273-304)
[2018-09-18] MEDS: PIPERACILLIN/TAZOBACTAM 3,375 MG in SODIUM CHLORIDE 0.9% 100 ML IV SCH ×3 (06:40→22:52)
[2018-09-18] MEDS: MAGNESIUM OXIDE 400 MG TABLET PO SCH (09:56)
[2018-09-18] MEDS: hydroCHLOROthiazide 25 MG TABLET PO SCH (09:56)
[2018-09-18] MEDS: FOLIC ACID 1 MG TABLET PO SCH (09:56)
[2018-09-18] MEDS: PANTOPRAZOLE 40 MG TABLET PO SCH (09:56)
[2018-09-18] MEDS: cloNIDine 0.1 MG TABLET PO SCH ×2 (09:56→23:42)
[2018-09-18] MEDS: FLUTICASONE 50 MCG NASAL SPRAY 16 GM BOTTLE BOTH NARES SCH (09:57)
[2018-09-18] MEDS: TOPIRAMATE 25 MG TABLET PO SCH ×2 (09:57→21:13)
[2018-09-18] MEDS: ATENOLOL 50 MG TABLET PO SCH ×2 (09:57→23:42)
[2018-09-18] MEDS: TICAGRELOR 90 MG TABLET PO SCH ×2 (09:57→21:12)
[2018-09-18] MEDS: ASPIRIN EC 81 MG TABLET PO SCH (09:57)
[2018-09-18] MEDS: DOCUSATE SODIUM 100 MG CAPSULE PO PRN ×2 (09:57→21:12)
[2018-09-18] MEDS: POTASSIUM CHLORIDE 20 MEQ TABLET PO SCH ×3 (09:58→21:12)
[2018-09-18] MEDS: DICLOFENAC 1% GEL 100 GM TUBE TOP SCH ×2 (15:44→21:56)
[2018-09-18] MEDS: SODIUM CHLORIDE 23.4% CONC INJ 38.5 MEQ in STERILE WATER INJ 1,000 ML IV SCH (18:22)
[2018-09-18] MEDS: MECLIZINE 25 MG TABLET PO SCH (21:12)
[2018-09-18] MEDS: LIDOCAINE 5% PATCH TRANSDERM SCH (23:58)
[2018-09-19 06:16] LABS: Basophils # 0.1 10*3/uL (0.0-0.2); Basophils % 0.4 % (0.0-0.8); Eosinophils # 0.2 10*3/uL (0.0-0.87); Eosinophils % 1.5 % (0.00-10.9); Hematocrit 32.2 VOL% (35.7-47.0); Hemoglobin 9.6 GM/DL (12.0-16.0); Immature Granulocytes % 2.1 %; Immature Granulocytes Absolute 0.29 #; Lymphocytes # 3.2 10*3/uL (1.4-4.0); Lymphocytes % 23.5 % (21.3-54.2); Mean Corpuscular HGB Conc 29.8 GM/DL (32-36); Mean Corpuscular Hemoglobin 29 PG (27-34); Mean Corpuscular Volume 96.1 FL (87-102); Mean Platelet Volume 10.2 FL (9.6-12.0); Monocytes # 1.1 10*3/uL (0.11-0.8); Monocytes % 7.9 % (1.7-12.7); Neutrophils # 8.9 10*3/uL (1.4-7.4); Neutrophils % 64.6 % (38.7-73.9); Platelet Count 306 T/CUMM (130-400); Red Blood Count 3.35 MC/CUMM (3.8-5.5); Red Cell Distribution Width 13.8 % (9.3-17.3); White Blood Count 13.8 T/CUMM (4-12)
[2018-09-19 06:37] LABS: Calcium 8.4 MG/DL (8.5-10.1); Osmolality,Calculated 288.7 MOS/KG (273-304); Potassium 3.6 MMOL/L (3.5-5.1)
[2018-09-19] MEDS: PIPERACILLIN/TAZOBACTAM 3,375 MG in SODIUM CHLORIDE 0.9% 100 ML IV SCH ×3 (07:35→23:17)
[2018-09-19] MEDS: TICAGRELOR 90 MG TABLET PO SCH ×2 (08:42→20:09)
[2018-09-19] MEDS ORDERED: SODIUM PHOSPHATE ENEMA 133 ML BOTTLE RECTAL ONE ×3 (08:45→10:00)
[2018-09-19] MEDS: cloNIDine 0.1 MG TABLET PO SCH ×4 (08:52→20:23)
[2018-09-19] MEDS: FOLIC ACID 1 MG TABLET PO SCH (08:52)
[2018-09-19] MEDS: ASPIRIN EC 81 MG TABLET PO SCH (08:52)
[2018-09-19] MEDS: TOPIRAMATE 25 MG TABLET PO SCH ×3 (08:53→20:08)
[2018-09-19] MEDS: hydroCHLOROthiazide 25 MG TABLET PO SCH (08:53)
[2018-09-19] MEDS: PANTOPRAZOLE 40 MG TABLET PO SCH (08:53)
[2018-09-19] MEDS: ATENOLOL 50 MG TABLET PO SCH ×4 (08:53→20:23)
[2018-09-19] MEDS: MAGNESIUM OXIDE 400 MG TABLET PO SCH ×2 (08:53→09:49)
[2018-09-19] MEDS: POTASSIUM CHLORIDE 20 MEQ TABLET PO SCH ×3 (08:53→20:09)
[2018-09-19] MEDS: FLUTICASONE 50 MCG NASAL SPRAY 16 GM BOTTLE BOTH NARES SCH (09:12)
[2018-09-19] MEDS: DICLOFENAC 1% GEL 100 GM TUBE TOP SCH ×3 (09:12→20:08)
[2018-09-19] MEDS: SODIUM CHLORIDE 23.4% CONC INJ 38.5 MEQ in STERILE WATER INJ 1,000 ML IV SCH (14:55)
[2018-09-19] MEDS: DOCUSATE SODIUM 100 MG CAPSULE PO PRN (20:08)
[2018-09-19] MEDS: MECLIZINE 25 MG TABLET PO SCH (20:08)
[2018-09-19] MEDS: LIDOCAINE 5% PATCH TRANSDERM SCH (23:18)
[2018-09-20 03:59] LABS: Basophils # 0.1 10*3/uL (0.0-0.2); Basophils % 0.5 % (0.0-0.8); Eosinophils # 0.3 10*3/uL (0.0-0.87); Eosinophils % 2.6 % (0.00-10.9); Hemoglobin 9.2 GM/DL (12.0-16.0); Immature Granulocytes % 1.5 %; Immature Granulocytes Absolute 0.19 #; Lymphocytes # 2.3 10*3/uL (1.4-4.0); Lymphocytes % 18.7 % (21.3-54.2); Mean Corpuscular HGB Conc 29.7 GM/DL (32-36); Mean Corpuscular Hemoglobin 29 PG (27-34); Mean Corpuscular Volume 97.2 FL (87-102); Mean Platelet Volume 10.1 FL (9.6-12.0); Monocytes # 1.2 10*3/uL (0.11-0.8); Monocytes % 9.7 % (1.7-12.7); Neutrophils # 8.4 10*3/uL (1.4-7.4); Platelet Count 286 T/CUMM (130-400); Red Blood Count 3.19 MC/CUMM (3.8-5.5); Red Cell Distribution Width 13.8 % (9.3-17.3); White Blood Count 12.5 T/CUMM (4-12)
[2018-09-20 04:23] LABS: Osmolality,Calculated 289.7 MOS/KG (273-304); Potassium 3.7 MMOL/L (3.5-5.1)
[2018-09-20 04:24] LABS: Albumin 2.6 G/DL (3.4-5.0); Bilirubin,Total 0.8 MG/DL (0.2-1.0); Calcium 8.1 MG/DL (8.5-10.1); Osmolality,Calculated 287.8 MOS/KG (273-304); Potassium 3.8 MMOL/L (3.5-5.1); Total Protein 5.8 G/DL (6.4-8.3)
[2018-09-20] MEDS: PIPERACILLIN/TAZOBACTAM 3,375 MG in SODIUM CHLORIDE 0.9% 100 ML IV SCH ×3 (07:02→22:59)
[2018-09-20] MEDS: FLUTICASONE 50 MCG NASAL SPRAY 16 GM BOTTLE BOTH NARES SCH (09:00)
[2018-09-20] MEDS: MAGNESIUM OXIDE 400 MG TABLET PO SCH (09:00)
[2018-09-20] MEDS: FOLIC ACID 1 MG TABLET PO SCH (09:01)
[2018-09-20] MEDS: cloNIDine 0.1 MG TABLET PO SCH ×2 (09:01→20:55)
[2018-09-20] MEDS: ATENOLOL 50 MG TABLET PO SCH ×2 (09:01→20:55)
[2018-09-20] MEDS: ASPIRIN EC 81 MG TABLET PO SCH (09:01)
[2018-09-20] MEDS: TICAGRELOR 90 MG TABLET PO SCH (09:02)
[2018-09-20] MEDS: POTASSIUM CHLORIDE 20 MEQ TABLET PO SCH ×3 (09:02→20:54)
[2018-09-20] MEDS: PANTOPRAZOLE 40 MG TABLET PO SCH (09:02)
[2018-09-20] MEDS: hydroCHLOROthiazide 25 MG TABLET PO SCH (09:02)
[2018-09-20] MEDS: TOPIRAMATE 25 MG TABLET PO SCH ×2 (09:02→20:54)
[2018-09-20] MEDS: DICLOFENAC 1% GEL 100 GM TUBE TOP SCH ×3 (09:02→20:54)
[2018-09-20] MEDS: HYDROCORTISONE 25 MG SUPP RECTAL SCH ×2 (11:46→20:54)
[2018-09-20] MEDS: SODIUM CHLORIDE 23.4% CONC INJ 38.5 MEQ in STERILE WATER INJ 1,000 ML IV SCH (20:00)
[2018-09-20] MEDS: MECLIZINE 25 MG TABLET PO SCH (20:54)
[2018-09-20] MEDS: LIDOCAINE 5% PATCH TRANSDERM SCH (22:58)
[2018-09-21 03:39] LABS: Basophils % 0.3 % (0.0-0.8); Eosinophils # 0.4 10*3/uL (0.0-0.87); Eosinophils % 2.8 % (0.00-10.9); Hematocrit 29.8 VOL% (35.7-47.0); Immature Granulocytes % 1.2 %; Immature Granulocytes Absolute 0.16 #; Lymphocytes # 1.6 10*3/uL (1.4-4.0); Lymphocytes % 12.1 % (21.3-54.2); Mean Corpuscular HGB Conc 30.2 GM/DL (32-36); Mean Corpuscular Hemoglobin 29 PG (27-34); Mean Corpuscular Volume 97.1 FL (87-102); Mean Platelet Volume 10.2 FL (9.6-12.0); Monocytes # 1.2 10*3/uL (0.11-0.8); Monocytes % 8.9 % (1.7-12.7); Neutrophils # 10.1 10*3/uL (1.4-7.4); Neutrophils % 74.7 % (38.7-73.9); Platelet Count 250 T/CUMM (130-400); Red Blood Count 3.07 MC/CUMM (3.8-5.5); White Blood Count 13.5 T/CUMM (4-12)
[2018-09-21] MEDS: PIPERACILLIN/TAZOBACTAM 3,375 MG in SODIUM CHLORIDE 0.9% 100 ML IV SCH (06:42)
[2018-09-21] MEDS: POTASSIUM CHLORIDE 20 MEQ TABLET PO SCH ×3 (09:15→21:20)
[2018-09-21] MEDS: ATENOLOL 50 MG TABLET PO SCH ×2 (09:15→21:23)
[2018-09-21] MEDS: HYDROCORTISONE 25 MG SUPP RECTAL SCH ×2 (09:15→21:23)
[2018-09-21] MEDS: cloNIDine 0.1 MG TABLET PO SCH ×2 (09:16→21:23)
[2018-09-21] MEDS: PANTOPRAZOLE 40 MG TABLET PO SCH (09:16)
[2018-09-21] MEDS: FOLIC ACID 1 MG TABLET PO SCH (09:16)
[2018-09-21] MEDS: hydroCHLOROthiazide 25 MG TABLET PO SCH (09:16)
[2018-09-21] MEDS: ASPIRIN EC 81 MG TABLET PO SCH (09:16)
[2018-09-21] MEDS: MAGNESIUM OXIDE 400 MG TABLET PO SCH (09:16)
[2018-09-21] MEDS: CLOPIDOGREL 75 MG TABLET PO SCH (09:16)
[2018-09-21] MEDS: FLUTICASONE 50 MCG NASAL SPRAY 16 GM BOTTLE BOTH NARES SCH (09:17)
[2018-09-21] MEDS: DICLOFENAC 1% GEL 100 GM TUBE TOP SCH ×3 (09:17→21:24)
[2018-09-21] MEDS: DOCUSATE SODIUM 100 MG CAPSULE PO PRN ×2 (09:19→21:31)
[2018-09-21] MEDS: TOPIRAMATE 25 MG TABLET PO SCH ×2 (09:19→21:23)
[2018-09-21] MEDS: MECLIZINE 25 MG TABLET PO SCH (21:23)
[2018-09-22] MEDS: LIDOCAINE 5% PATCH TRANSDERM SCH (01:41)
[2018-09-22 05:59] LABS: Basophils % 0.4 % (0.0-0.8); Eosinophils # 0.3 10*3/uL (0.0-0.87); Eosinophils % 3.5 % (0.00-10.9); Hematocrit 30.8 VOL% (35.7-47.0); Hemoglobin 9.3 GM/DL (12.0-16.0); Immature Granulocytes % 0.9 %; Immature Granulocytes Absolute 0.09 #; Lymphocytes # 1.8 10*3/uL (1.4-4.0); Mean Corpuscular HGB Conc 30.2 GM/DL (32-36); Mean Corpuscular Hemoglobin 29 PG (27-34); Mean Corpuscular Volume 97.5 FL (87-102); Mean Platelet Volume 10.2 FL (9.6-12.0); Monocytes # 0.8 10*3/uL (0.11-0.8); Monocytes % 8.3 % (1.7-12.7); Neutrophils # 6.8 10*3/uL (1.4-7.4); Neutrophils % 68.9 % (38.7-73.9); Platelet Count 236 T/CUMM (130-400); Red Blood Count 3.16 MC/CUMM (3.8-5.5); Red Cell Distribution Width 13.8 % (9.3-17.3); White Blood Count 9.8 T/CUMM (4-12)
[2018-09-22 06:40] LABS: Calcium 8.7 MG/DL (8.5-10.1); Osmolality,Calculated 284.8 MOS/KG (273-304); Potassium 3.7 MMOL/L (3.5-5.1)
[2018-09-22] MEDS: SODIUM CHLORIDE 23.4% CONC INJ 38.5 MEQ in STERILE WATER INJ 1,000 ML IV SCH ×2 (07:00→13:30)
[2018-09-22] MEDS: CLOPIDOGREL 75 MG TABLET PO SCH (09:44)
[2018-09-22] MEDS: PANTOPRAZOLE 40 MG TABLET PO SCH (09:44)
[2018-09-22] MEDS: FLUTICASONE 50 MCG NASAL SPRAY 16 GM BOTTLE BOTH NARES SCH (09:44)
[2018-09-22] MEDS: hydroCHLOROthiazide 25 MG TABLET PO SCH (09:45)
[2018-09-22] MEDS: cloNIDine 0.1 MG TABLET PO SCH ×2 (09:45→21:15)
[2018-09-22] MEDS: ATENOLOL 50 MG TABLET PO SCH ×2 (09:45→21:14)
[2018-09-22] MEDS: DOCUSATE SODIUM 100 MG CAPSULE PO PRN ×2 (09:45→21:14)
[2018-09-22] MEDS: ASPIRIN EC 81 MG TABLET PO SCH (09:45)
[2018-09-22] MEDS: MAGNESIUM OXIDE 400 MG TABLET PO SCH (09:45)
[2018-09-22] MEDS: TOPIRAMATE 25 MG TABLET PO SCH ×2 (09:46→21:15)
[2018-09-22] MEDS: POTASSIUM CHLORIDE 20 MEQ TABLET PO SCH ×3 (09:46→21:14)
[2018-09-22] MEDS: HYDROCORTISONE 25 MG SUPP RECTAL SCH ×2 (09:46→21:15)
[2018-09-22] MEDS: DICLOFENAC 1% GEL 100 GM TUBE TOP SCH ×3 (09:47→21:15)
[2018-09-22] MEDS: FOLIC ACID 1 MG TABLET PO SCH (09:48)
[2018-09-22] MEDS ORDERED: methylPREDNISolone SOD SUC 40 MG/1 ML VIAL IV SCH (15:30)
[2018-09-22] MEDS: ATORVASTATIN 20 MG TABLET PO SCH (21:14)
[2018-09-22] MEDS: MECLIZINE 25 MG TABLET PO SCH (21:15)
[2018-09-23] MEDS: POTASSIUM CHLORIDE 20 MEQ TABLET PO SCH ×3 (09:27→20:44)
[2018-09-23] MEDS: DOCUSATE SODIUM 100 MG CAPSULE PO PRN ×2 (09:27→20:44)
[2018-09-23] MEDS: LIDOCAINE 5% PATCH TRANSDERM SCH (09:27)
[2018-09-23] MEDS: FLUTICASONE 50 MCG NASAL SPRAY 16 GM BOTTLE BOTH NARES SCH (09:28)
[2018-09-23] MEDS: HYDROCORTISONE 25 MG SUPP RECTAL SCH ×2 (09:28→20:47)
[2018-09-23] MEDS: FOLIC ACID 1 MG TABLET PO SCH (09:28)
[2018-09-23] MEDS: ATENOLOL 50 MG TABLET PO SCH ×2 (09:28→20:44)
[2018-09-23] MEDS: predniSONE 10 MG TABLET PO SCH (09:28)
[2018-09-23] MEDS: ASPIRIN EC 81 MG TABLET PO SCH (09:29)
[2018-09-23] MEDS: TOPIRAMATE 25 MG TABLET PO SCH ×2 (09:29→20:44)
[2018-09-23] MEDS: cloNIDine 0.1 MG TABLET PO SCH ×2 (09:29→20:44)
[2018-09-23] MEDS: CLOPIDOGREL 75 MG TABLET PO SCH (09:29)
[2018-09-23] MEDS: PANTOPRAZOLE 40 MG TABLET PO SCH (09:29)
[2018-09-23] MEDS: MAGNESIUM OXIDE 400 MG TABLET PO SCH (09:29)
[2018-09-23] MEDS: hydroCHLOROthiazide 25 MG TABLET PO SCH (09:29)
[2018-09-23] MEDS: DICLOFENAC 1% GEL 100 GM TUBE TOP SCH ×3 (09:30→20:45)
[2018-09-23] MEDS: ATORVASTATIN 20 MG TABLET PO SCH (20:44)
[2018-09-23] MEDS: MECLIZINE 25 MG TABLET PO SCH (20:44)
[2018-09-24 05:26] LABS: Basophils # 0.1 10*3/uL (0.0-0.2); Basophils % 0.3 % (0.0-0.8); Eosinophils # 0.1 10*3/uL (0.0-0.87); Eosinophils % 0.6 % (0.00-10.9); Hematocrit 36.2 VOL% (35.7-47.0); Immature Granulocytes % 0.8 %; Immature Granulocytes Absolute 0.12 #; Lymphocytes # 3.6 10*3/uL (1.4-4.0); Lymphocytes % 22.8 % (21.3-54.2); Mean Corpuscular HGB Conc 29.3 GM/DL (32-36); Mean Corpuscular Hemoglobin 29 PG (27-34); Mean Corpuscular Volume 97.3 FL (87-102); Mean Platelet Volume 10.7 FL (9.6-12.0); Monocytes # 0.9 10*3/uL (0.11-0.8); Monocytes % 5.3 % (1.7-12.7); Neutrophils # 11.2 10*3/uL (1.4-7.4); Neutrophils % 70.2 % (38.7-73.9); Platelet Count 280 T/CUMM (130-400); Red Blood Count 3.72 MC/CUMM (3.8-5.5); Red Cell Distribution Width 13.8 % (9.3-17.3); White Blood Count 15.9 T/CUMM (4-12)
[2018-09-24 05:36] LABS: Hemoglobin 10.8 GM/DL (12.0-16.0)
[2018-09-24 06:59] LABS: Apearance,Urine CLEAR (Clear); Bacteria,Urine Occasional /HPF (Few); Bilirubin,Urine Negative (Negative); Blood, Urine Negative (Negative); Glucose,Urine (UA) Negative (Negative); Ketones,Urine Negative (Negative); Mucus,Urine Occasional /LPF (Occasional); Nitrite,Urine Negative (Negative); Protein,Urine Negative; RBC,Urine 1 /HPF (0-4); Squamous Epithelial Cell,Urine Occasional /HPF (0-10); Urine Color Yellow (Yellow); Urine Specific Gravity 1.013 (1.001-1.035); Urine Urobilinogen < 2.0 EU/DL (0.2-1.0); WBC,Urine 2 /HPF (0-6)
[2018-09-24] MEDS: hydroCHLOROthiazide 25 MG TABLET PO SCH (11:00)
[2018-09-24] MEDS: CLOPIDOGREL 75 MG TABLET PO SCH (11:01)
[2018-09-24] MEDS: MAGNESIUM OXIDE 400 MG TABLET PO SCH (11:01)
[2018-09-24] MEDS: FOLIC ACID 1 MG TABLET PO SCH (11:01)
[2018-09-24] MEDS: cloNIDine 0.1 MG TABLET PO SCH (11:01)
[2018-09-24] MEDS: ASPIRIN EC 81 MG TABLET PO SCH (11:04)
[2018-09-24] MEDS: predniSONE 10 MG TABLET PO SCH (11:04)
[2018-09-24] MEDS: PANTOPRAZOLE 40 MG TABLET PO SCH (11:05)
[2018-09-24] MEDS: TOPIRAMATE 25 MG TABLET PO SCH (11:05)
[2018-09-24] MEDS: ATENOLOL 50 MG TABLET PO SCH (11:05)
[2018-09-24] MEDS: POTASSIUM CHLORIDE 20 MEQ TABLET PO SCH ×2 (11:07→16:06)
[2018-09-24] MEDS: LIDOCAINE 5% PATCH TRANSDERM SCH (11:08)
[2018-09-24] MEDS: FLUTICASONE 50 MCG NASAL SPRAY 16 GM BOTTLE BOTH NARES SCH (11:08)
[2018-09-24] MEDS: MECLIZINE 25 MG TABLET PO PRN (11:08)
[2018-09-24] MEDS: HYDROCORTISONE 25 MG SUPP RECTAL SCH (11:10)
[2018-09-24] MEDS: DICLOFENAC 1% GEL 100 GM TUBE TOP SCH ×2 (11:12→16:08)
[2018-09-24 18:03] VITALS: BP 156/63
== END 2018-09-24 19:22 | disposition home health service (06) | DRG 554 ==
LOC: EDBD → EDUNIT# → N.ED 12:06 → N.EDINP 14:56 → N.3E 16:27
PROVIDERS: ADMIT Internal Medicine; ATTEND Internal Medicine

== ENCOUNTER 2018-10-14 13:23 | Inpatient (IN) ==
[2018-10-14 14:30] LABS: Basophils # 0.1 10*3/uL (0.0-0.2); Basophils % 0.7 % (0.0-0.8); Eosinophils # 0.3 10*3/uL (0.0-0.87); Eosinophils % 2.7 % (0.00-10.9); Hematocrit 39.8 VOL% (35.7-47.0); Immature Granulocytes % 0.5 %; Immature Granulocytes Absolute 0.05 #; Lymphocytes # 3.2 10*3/uL (1.4-4.0); Lymphocytes % 32.8 % (21.3-54.2); Mean Corpuscular HGB Conc 30.2 GM/DL (32-36); Mean Corpuscular Hemoglobin 28 PG (27-34); Mean Corpuscular Volume 94.1 FL (87-102); Mean Platelet Volume 9.7 FL (9.6-12.0); Monocytes # 0.9 10*3/uL (0.11-0.8); Monocytes % 9.1 % (1.7-12.7); Neutrophils # 5.3 10*3/uL (1.4-7.4); Neutrophils % 54.2 % (38.7-73.9); Platelet Count 363 T/CUMM (130-400); Red Blood Count 4.23 MC/CUMM (3.8-5.5); Red Cell Distribution Width 12.9 % (9.3-17.3); White Blood Count 9.8 T/CUMM (4-12)
[2018-10-14 14:44] LABS: Apearance,Urine Slightly Hazy (Clear); Bilirubin,Urine Negative (Negative); Blood, Urine Negative (Negative); Glucose,Urine (UA) Negative (Negative); Ketones,Urine Negative (Negative); Mucus,Urine Occasional /LPF (Occasional); Nitrite,Urine Negative (Negative); Protein,Urine Negative; RBC,Urine 5 /HPF (0-4); Squamous Epithelial Cell,Urine Occasional /HPF (0-10); Urine Color Yellow (Yellow); Urine Specific Gravity 1.012 (1.001-1.035); Urine Urobilinogen < 2.0 EU/DL (0.2-1.0); WBC,Urine 29 /HPF (0-6)
[2018-10-14 14:59] LABS: Albumin 3.6 G/DL (3.4-5.0); Bilirubin,Total 0.5 MG/DL (0.2-1.0); Calcium 9.8 MG/DL (8.5-10.1); Osmolality,Calculated 285.8 MOS/KG (273-304); Potassium 3.6 MMOL/L (3.5-5.1); Total Protein 7.6 G/DL (6.4-8.3)
[2018-10-14] MEDS ORDERED: cefTRIAXone 1,000 MG in SODIUM CHLORIDE 0.9% 100 ML IV STA (15:41)
[2018-10-14] MEDS ORDERED: SODIUM CHLORIDE 0.9% 100 ML IV ONE (16:08)
[2018-10-14] MEDS ORDERED: cefTRIAXone 1,000 MG VIAL ONE (16:08)
[2018-10-15] MEDS: CLOPIDOGREL 75 MG TABLET PO SCH (09:22)
[2018-10-15] MEDS: ASPIRIN EC 81 MG TABLET PO SCH (09:25)
[2018-10-15] MEDS: PANTOPRAZOLE 40 MG TABLET PO SCH (09:25)
[2018-10-15] MEDS: hydroCHLOROthiazide 25 MG TABLET PO SCH (09:25)
[2018-10-15] MEDS: ATENOLOL 50 MG TABLET PO SCH ×2 (09:25→22:50)
[2018-10-15] MEDS: cloNIDine 0.1 MG TABLET PO SCH ×2 (09:25→22:49)
[2018-10-15] MEDS ORDERED: ALUMINUM/MAGNES/SIMETH MAX STR 30 ML UDCUP PO PRN (18:46)
[2018-10-15] MEDS ORDERED: NITROGLYCERIN SL 0.4 MG TABLET SL PRN (18:46)
[2018-10-15] MEDS ORDERED: DOCUSATE SODIUM 100 MG CAPSULE PO PRN (18:46)
[2018-10-15] MEDS: ONDANSETRON 4 MG/2 ML VIAL IV PRN (18:51)
[2018-10-15] MEDS: POTASSIUM CHLORIDE 20 MEQ TABLET PO SCH (22:41)
[2018-10-15] MEDS: MECLIZINE 25 MG TABLET PO SCH (22:41)
[2018-10-15] MEDS: LIDOCAINE 5% PATCH TRANSDERM SCH (22:49)
[2018-10-16 05:53] LABS: Basophils # 0.1 10*3/uL (0.0-0.2); Basophils % 0.6 % (0.0-0.8); Eosinophils # 0.3 10*3/uL (0.0-0.87); Eosinophils % 3.2 % (0.00-10.9); Hematocrit 37.4 VOL% (35.7-47.0); Hemoglobin 11.2 GM/DL (12.0-16.0); Immature Granulocytes % 0.4 %; Immature Granulocytes Absolute 0.04 #; Lymphocytes # 3.2 10*3/uL (1.4-4.0); Lymphocytes % 31.1 % (21.3-54.2); Mean Corpuscular HGB Conc 29.9 GM/DL (32-36); Mean Corpuscular Hemoglobin 28 PG (27-34); Mean Platelet Volume 9.8 FL (9.6-12.0); Monocytes % 10.1 % (1.7-12.7); Neutrophils # 5.6 10*3/uL (1.4-7.4); Neutrophils % 54.6 % (38.7-73.9); Platelet Count 367 T/CUMM (130-400); Red Blood Count 3.98 MC/CUMM (3.8-5.5); Red Cell Distribution Width 12.9 % (9.3-17.3); White Blood Count 10.2 T/CUMM (4-12)
[2018-10-16 06:11] LABS: Calcium 8.5 MG/DL (8.5-10.1); Osmolality,Calculated 286.7 MOS/KG (273-304); Potassium 3.4 MMOL/L (3.5-5.1)
[2018-10-16] MEDS ORDERED: POTASSIUM CHLORIDE 20 MEQ TABLET PO ONE (07:51)
[2018-10-16] MEDS: ASPIRIN EC 81 MG TABLET PO SCH (07:59)
[2018-10-16] MEDS: hydroCHLOROthiazide 25 MG TABLET PO SCH (07:59)
[2018-10-16] MEDS: MAGNESIUM OXIDE 400 MG TABLET PO SCH (07:59)
[2018-10-16] MEDS: POTASSIUM CHLORIDE 20 MEQ TABLET PO SCH ×3 (07:59→21:44)
[2018-10-16] MEDS: CLOPIDOGREL 75 MG TABLET PO SCH ×2 (07:59→08:05)
[2018-10-16] MEDS: PANTOPRAZOLE 40 MG TABLET PO SCH (08:00)
[2018-10-16] MEDS: ATENOLOL 50 MG TABLET PO SCH ×2 (08:00→21:42)
[2018-10-16] MEDS: LIDOCAINE 5% PATCH TRANSDERM SCH ×2 (08:00→23:22)
[2018-10-16] MEDS: cloNIDine 0.1 MG TABLET PO SCH ×2 (08:00→21:40)
[2018-10-16] MEDS ORDERED: ASPIRIN EC 81 MG TABLET PO SCH (09:00)
[2018-10-16] MEDS: traMADol 50 MG TABLET PO PRN ×2 (11:16→21:40)
[2018-10-16] MEDS: FLUTICASONE 50 MCG NASAL SPRAY 16 GM BOTTLE BOTH NARES SCH (11:32)
[2018-10-16] MEDS: cefTRIAXone 500 MG in SYRINGE 1 EACH IV SCH (15:20)
[2018-10-16] MEDS: ONDANSETRON 4 MG/2 ML VIAL IV PRN (20:53)
[2018-10-16] MEDS: MORPHINE 4 MG/1 ML VIAL IV PRN (20:54)
[2018-10-16] MEDS: MECLIZINE 25 MG TABLET PO SCH (21:39)
[2018-10-16] MEDS: DICLOFENAC 1% GEL 100 GM TUBE TOP PRN (21:53)
[2018-10-16] MEDS: ACETAMINOPHEN 325 MG TABLET PO PRN (23:48)
[2018-10-17] MEDS: ONDANSETRON 4 MG/2 ML VIAL IV PRN (00:42)
[2018-10-17] MEDS: MORPHINE 4 MG/1 ML VIAL IV PRN ×4 (00:45→18:34)
[2018-10-17 05:30] LABS: Basophils # 0.1 10*3/uL (0.0-0.2); Basophils % 0.4 % (0.0-0.8); Eosinophils % 0.1 % (0.00-10.9); Hematocrit 36.9 VOL% (35.7-47.0); Hemoglobin 11.1 GM/DL (12.0-16.0); Immature Granulocytes % 0.8 %; Immature Granulocytes Absolute 0.12 #; Lymphocytes # 2.3 10*3/uL (1.4-4.0); Lymphocytes % 14.5 % (21.3-54.2); Mean Corpuscular HGB Conc 30.1 GM/DL (32-36); Mean Corpuscular Hemoglobin 29 PG (27-34); Mean Corpuscular Volume 94.9 FL (87-102); Mean Platelet Volume 10.5 FL (9.6-12.0); Monocytes # 1.5 10*3/uL (0.11-0.8); Monocytes % 9.7 % (1.7-12.7); Neutrophils # 11.6 10*3/uL (1.4-7.4); Neutrophils % 74.5 % (38.7-73.9); Platelet Count 377 T/CUMM (130-400); Red Blood Count 3.89 MC/CUMM (3.8-5.5); White Blood Count 15.6 T/CUMM (4-12)
[2018-10-17 05:54] LABS: Calcium 8.5 MG/DL (8.5-10.1); Osmolality,Calculated 284.1 MOS/KG (273-304); Potassium 3.4 MMOL/L (3.5-5.1)
[2018-10-17] MEDS: MAGNESIUM OXIDE 400 MG TABLET PO SCH (09:21)
[2018-10-17] MEDS: LIDOCAINE 5% PATCH TRANSDERM SCH ×2 (09:21→21:49)
[2018-10-17] MEDS: cloNIDine 0.1 MG TABLET PO SCH ×2 (09:21→21:48)
[2018-10-17] MEDS: CLOPIDOGREL 75 MG TABLET PO SCH (09:21)
[2018-10-17] MEDS: PANTOPRAZOLE 40 MG TABLET PO SCH (09:21)
[2018-10-17] MEDS: hydroCHLOROthiazide 25 MG TABLET PO SCH (09:21)
[2018-10-17] MEDS: POTASSIUM CHLORIDE 20 MEQ TABLET PO SCH ×3 (09:21→21:48)
[2018-10-17] MEDS: ATENOLOL 50 MG TABLET PO SCH ×2 (09:21→21:49)
[2018-10-17] MEDS: ASPIRIN EC 81 MG TABLET PO SCH (09:21)
[2018-10-17] MEDS: FLUTICASONE 50 MCG NASAL SPRAY 16 GM BOTTLE BOTH NARES SCH (09:22)
[2018-10-17] MEDS ORDERED: LIDOCAINE 1% 20 ML VIAL MISC INJ ONE (15:05)
[2018-10-17] MEDS ORDERED: methylPREDNISolone ACETATE 40 MG/1 ML VIAL MISC INJ ONE (15:05)
[2018-10-17] MEDS: cefTRIAXone 500 MG in SYRINGE 1 EACH IV SCH ×2 (16:34→17:55)
[2018-10-17] MEDS ORDERED: MORPHINE 4 MG/1 ML VIAL IV PRN (17:42)
[2018-10-17 18:47] LABS: Cholesterol Crystals None Seen /LPF
[2018-10-17 18:59] LABS: Neutrophils,Synovial Fluid 89 %
[2018-10-17] MEDS: INDOMETHACIN SR 75 MG CAPSULE PO SCH (21:48)
[2018-10-17] MEDS: MECLIZINE 25 MG TABLET PO SCH (21:48)
[2018-10-18] MEDS: MORPHINE 4 MG/1 ML VIAL IV PRN ×2 (00:50→06:25)
[2018-10-18] MEDS: ACETAMINOPHEN 325 MG TABLET PO PRN (06:21)
[2018-10-18] MEDS: methylPREDNISolone SOD SUC 40 MG/1 ML VIAL IV SCH ×3 (06:27→22:13)
[2018-10-18 06:30] LABS: Basophils % 0.1 % (0.0-0.8); Eosinophils % 0.1 % (0.00-10.9); Hematocrit 35.7 VOL% (35.7-47.0); Hemoglobin 10.6 GM/DL (12.0-16.0); Immature Granulocytes % 0.5 %; Immature Granulocytes Absolute 0.09 #; Lymphocytes # 3.1 10*3/uL (1.4-4.0); Lymphocytes % 18.3 % (21.3-54.2); Mean Corpuscular HGB Conc 29.7 GM/DL (32-36); Mean Corpuscular Hemoglobin 28 PG (27-34); Mean Corpuscular Volume 94.4 FL (87-102); Monocytes # 2.1 10*3/uL (0.11-0.8); Monocytes % 12.5 % (1.7-12.7); Neutrophils # 11.7 10*3/uL (1.4-7.4); Neutrophils % 68.5 % (38.7-73.9); Platelet Count 357 T/CUMM (130-400); Red Blood Count 3.78 MC/CUMM (3.8-5.5); Red Cell Distribution Width 12.9 % (9.3-17.3); White Blood Count 17.2 T/CUMM (4-12)
[2018-10-18] MEDS ORDERED: POTASSIUM CHLORIDE 20 MEQ TABLET PO ONE (06:30)
[2018-10-18 06:47] LABS: Albumin 2.9 G/DL (3.4-5.0); Bilirubin,Total 1.6 MG/DL (0.2-1.0); Calcium 9.1 MG/DL (8.5-10.1); Osmolality,Calculated 278.5 MOS/KG (273-304); Potassium 4.6 MMOL/L (3.5-5.1); Total Protein 7.2 G/DL (6.4-8.3)
[2018-10-18] MEDS ORDERED: COLCHICINE 0.6 MG TABLET PO ONE ×2 (08:45→15:00)
[2018-10-18] MEDS: INDOMETHACIN SR 75 MG CAPSULE PO SCH ×2 (08:49→22:12)
[2018-10-18] MEDS: cloNIDine 0.1 MG TABLET PO SCH ×2 (09:17→22:11)
[2018-10-18] MEDS: ASPIRIN EC 81 MG TABLET PO SCH (09:17)
[2018-10-18] MEDS: hydroCHLOROthiazide 25 MG TABLET PO SCH (09:17)
[2018-10-18] MEDS: POTASSIUM CHLORIDE 20 MEQ TABLET PO SCH ×4 (09:18→22:12)
[2018-10-18] MEDS: MAGNESIUM OXIDE 400 MG TABLET PO SCH (09:18)
[2018-10-18] MEDS: PANTOPRAZOLE 40 MG TABLET PO SCH (09:18)
[2018-10-18] MEDS: CLOPIDOGREL 75 MG TABLET PO SCH (09:19)
[2018-10-18] MEDS: FLUTICASONE 50 MCG NASAL SPRAY 16 GM BOTTLE BOTH NARES SCH (09:19)
[2018-10-18] MEDS: ATENOLOL 50 MG TABLET PO SCH ×2 (09:19→22:10)
[2018-10-18] MEDS: DICLOFENAC 1% GEL 100 GM TUBE TOP PRN (09:20)
[2018-10-18] MEDS: LIDOCAINE 5% PATCH TRANSDERM SCH ×2 (09:22→22:12)
[2018-10-18] MEDS: cefTRIAXone 500 MG in SYRINGE 1 EACH IV SCH (16:43)
[2018-10-18] MEDS: ALBUTEROL/IPRATROPIUM 3 ML NEB RESP TX SCH (19:22)
[2018-10-18] MEDS: MECLIZINE 25 MG TABLET PO SCH (22:10)
[2018-10-19] MEDS: ALBUTEROL/IPRATROPIUM 3 ML NEB RESP TX SCH ×4 (01:07→19:49)
[2018-10-19 06:03] LABS: Basophils % 0.1 % (0.0-0.8); Hematocrit 33.9 VOL% (35.7-47.0); Hemoglobin 10.3 GM/DL (12.0-16.0); Immature Granulocytes % 1.2 %; Immature Granulocytes Absolute 0.34 #; Lymphocytes % 6.7 % (21.3-54.2); Mean Corpuscular HGB Conc 30.4 GM/DL (32-36); Mean Corpuscular Hemoglobin 28 PG (27-34); Mean Corpuscular Volume 93.1 FL (87-102); Mean Platelet Volume 10.3 FL (9.6-12.0); Monocytes # 1.5 10*3/uL (0.11-0.8); Neutrophils # 25.4 10*3/uL (1.4-7.4); Platelet Count 349 T/CUMM (130-400); Red Blood Count 3.64 MC/CUMM (3.8-5.5); Red Cell Distribution Width 12.5 % (9.3-17.3); White Blood Count 29.2 T/CUMM (4-12)
[2018-10-19 07:17] LABS: Band Neutrophils 1 % (0-10); Lymphocytes 4 % (20-55); Segmented Neutrophils 89 % (50-85); Total Cells Counted 100
[2018-10-19 07:18] LABS: Hypochromasia 1+; Microcytosis Slight
[2018-10-19] MEDS: methylPREDNISolone SOD SUC 40 MG/1 ML VIAL IV SCH ×3 (08:06→21:56)
[2018-10-19] MEDS: LIDOCAINE 5% PATCH TRANSDERM SCH ×2 (09:20→22:05)
[2018-10-19] MEDS: ALLOPURINOL 100 MG TABLET PO SCH (09:22)
[2018-10-19] MEDS: INDOMETHACIN SR 75 MG CAPSULE PO SCH ×2 (09:22→21:55)
[2018-10-19] MEDS: POTASSIUM CHLORIDE 20 MEQ TABLET PO SCH ×2 (09:25→11:43)
[2018-10-19] MEDS: PANTOPRAZOLE 40 MG TABLET PO SCH (09:25)
[2018-10-19] MEDS: CLOPIDOGREL 75 MG TABLET PO SCH (09:25)
[2018-10-19] MEDS: hydroCHLOROthiazide 25 MG TABLET PO SCH (09:25)
[2018-10-19] MEDS: cloNIDine 0.1 MG TABLET PO SCH ×2 (09:25→21:54)
[2018-10-19] MEDS: ATENOLOL 50 MG TABLET PO SCH ×2 (09:25→21:55)
[2018-10-19] MEDS: FLUTICASONE 50 MCG NASAL SPRAY 16 GM BOTTLE BOTH NARES SCH (09:26)
[2018-10-19] MEDS: MAGNESIUM OXIDE 400 MG TABLET PO SCH (09:26)
[2018-10-19] MEDS: ASPIRIN EC 81 MG TABLET PO SCH (09:44)
[2018-10-19] MEDS: ONDANSETRON 4 MG/2 ML VIAL IV PRN (09:48)
[2018-10-19 13:26] LABS: Alanine Aminotransferase 21 U/L (13-56); Albumin 2.7 G/DL (3.4-5.0); Alkaline Phosphatase 94 U/L (45-117); Aspartate Amino Transferase 18 U/L (0-37); Bilirubin,Total < 0.39 MG/DL (0.2-1.0); Blood Urea Nitrogen 28 MG/DL (7-18); Calcium 8.9 MG/DL (8.5-10.1); Glucose 168 MG/DL (74-106); Osmolality,Calculated 286.5 MOS/KG (273-304); Sodium 139 MMOL/L (136-145); Total Protein 6.3 G/DL (6.4-8.3)
[2018-10-19 13:31] LABS: Potassium 6.4 MMOL/L (3.5-5.1)
[2018-10-19] MEDS ORDERED: SODIUM POLYSTYRENE SULFATE 15 GM/60 ML BOTTLE PO STA (13:42)
[2018-10-19] MEDS: cefTRIAXone 500 MG in SYRINGE 1 EACH IV SCH (16:41)
[2018-10-19] MEDS ORDERED: POTASSIUM CHLORIDE 20 MEQ TABLET PO PRN (17:33)
[2018-10-19] MEDS: MORPHINE 4 MG/1 ML VIAL IV PRN (18:58)
[2018-10-19] MEDS: MECLIZINE 25 MG TABLET PO SCH (21:53)
[2018-10-19] MEDS: DICLOFENAC 1% GEL 100 GM TUBE TOP PRN (22:06)
[2018-10-20] MEDS: ALBUTEROL/IPRATROPIUM 3 ML NEB RESP TX SCH ×4 (00:55→19:51)
[2018-10-20 05:28] LABS: Calcium 8.8 MG/DL (8.5-10.1); Osmolality,Calculated 288.4 MOS/KG (273-304); Potassium 5.5 MMOL/L (3.5-5.1)
[2018-10-20 05:30] LABS: Basophils % 0.1 % (0.0-0.8); Hematocrit 32.7 VOL% (35.7-47.0); Hemoglobin 9.9 GM/DL (12.0-16.0); Immature Granulocytes % 1.2 %; Immature Granulocytes Absolute 0.35 #; Lymphocytes # 1.7 10*3/uL (1.4-4.0); Lymphocytes % 5.9 % (21.3-54.2); Mean Corpuscular HGB Conc 30.3 GM/DL (32-36); Mean Corpuscular Hemoglobin 28 PG (27-34); Mean Corpuscular Volume 93.7 FL (87-102); Mean Platelet Volume 10.7 FL (9.6-12.0); Monocytes # 1.1 10*3/uL (0.11-0.8); Monocytes % 3.8 % (1.7-12.7); Platelet Count 392 T/CUMM (130-400); Red Blood Count 3.49 MC/CUMM (3.8-5.5); Red Cell Distribution Width 12.9 % (9.3-17.3); White Blood Count 29.2 T/CUMM (4-12)
[2018-10-20 05:57] LABS: Anisocytosis 1+; Band Neutrophils 8 % (0-10); Lymphocytes 5 % (20-55); Platelet Estimate Normal; Segmented Neutrophils 84 % (50-85); Total Cells Counted 100
[2018-10-20] MEDS: methylPREDNISolone SOD SUC 40 MG/1 ML VIAL IV SCH (06:26)
[2018-10-20] MEDS: cloNIDine 0.1 MG TABLET PO SCH ×2 (09:29→21:49)
[2018-10-20] MEDS: INDOMETHACIN SR 75 MG CAPSULE PO SCH (09:29)
[2018-10-20] MEDS: CLOPIDOGREL 75 MG TABLET PO SCH (09:30)
[2018-10-20] MEDS: ALLOPURINOL 100 MG TABLET PO SCH (09:30)
[2018-10-20] MEDS: ATENOLOL 50 MG TABLET PO SCH ×2 (09:31→21:49)
[2018-10-20] MEDS: PANTOPRAZOLE 40 MG TABLET PO SCH (09:31)
[2018-10-20] MEDS: hydroCHLOROthiazide 25 MG TABLET PO SCH (09:31)
[2018-10-20] MEDS: MAGNESIUM OXIDE 400 MG TABLET PO SCH (09:31)
[2018-10-20] MEDS: LIDOCAINE 5% PATCH TRANSDERM SCH ×2 (09:32→21:56)
[2018-10-20] MEDS: FLUTICASONE 50 MCG NASAL SPRAY 16 GM BOTTLE BOTH NARES SCH (11:34)
[2018-10-20] MEDS: ASPIRIN EC 81 MG TABLET PO SCH (11:34)
[2018-10-20] MEDS: MORPHINE 4 MG/1 ML VIAL IV PRN (15:07)
[2018-10-20] MEDS: cefTRIAXone 500 MG in SYRINGE 1 EACH IV SCH (16:43)
[2018-10-20] MEDS: MECLIZINE 25 MG TABLET PO SCH (21:49)
[2018-10-20] MEDS: DICLOFENAC 1% GEL 100 GM TUBE TOP PRN (21:57)
[2018-10-21] MEDS: ALBUTEROL/IPRATROPIUM 3 ML NEB RESP TX SCH ×3 (00:23→14:11)
[2018-10-21] MEDS: MAGNESIUM OXIDE 400 MG TABLET PO SCH (09:14)
[2018-10-21] MEDS: hydroCHLOROthiazide 25 MG TABLET PO SCH (09:14)
[2018-10-21] MEDS: ASPIRIN EC 81 MG TABLET PO SCH (09:15)
[2018-10-21] MEDS: CLOPIDOGREL 75 MG TABLET PO SCH (09:15)
[2018-10-21] MEDS: cloNIDine 0.1 MG TABLET PO SCH (09:15)
[2018-10-21] MEDS: LIDOCAINE 5% PATCH TRANSDERM SCH (09:15)
[2018-10-21] MEDS: ATENOLOL 50 MG TABLET PO SCH (09:15)
[2018-10-21] MEDS: PANTOPRAZOLE 40 MG TABLET PO SCH (09:15)
[2018-10-21] MEDS: INDOMETHACIN SR 75 MG CAPSULE PO SCH (09:15)
[2018-10-21] MEDS: ALLOPURINOL 100 MG TABLET PO SCH (09:15)
[2018-10-21] MEDS: FLUTICASONE 50 MCG NASAL SPRAY 16 GM BOTTLE BOTH NARES SCH (09:16)
[2018-10-21 12:18] VITALS: BP 111/56
[2018-10-21 13:22] LABS: Calcium 8.2 MG/DL (8.5-10.1); Potassium 3.8 MMOL/L (3.5-5.1)
== END 2018-10-21 16:45 | disposition home health service (06) | DRG 880 ==
LOC: EDBD → EDUNIT# → N.ED 13:23 → N.EDINP 15:45 → N.TELEN 16:59
PROVIDERS: ADMIT Internal Medicine; ATTEND Internal Medicine